=== PATIENT | female | born 1980 | race Caucasian/White ===

== ENCOUNTER 2019-04-26 08:50 | Inpatient (IN) | payer SELFPAY ==
--- NOTE | 2019-04-26 09:32 | ER Document Report ---
ED General - General Stated Complaint: COUGH/CONGESTION/DIZZYNESS Time Seen by Provider: 04/26/19 09:14 Primary Care Provider: SLICK DE LA CRUZ [NO LOCAL MD] - Follow up as needed - HPI Notes: Patient is a 39-year-old female who presents to the emergency department for evaluation of cough and shortness of breath. She states she started last week with sinus symptoms. She believed it was a possible sinus infection. She states she progressed to having fevers starting on Thursday, as high as 101. She then progressed to a cough. She has had a cough intermittently productive of white and green sputum. She denies any hemoptysis. She has had some nausea but no emesis. Normal bowel movements. Normal urination. She describes some pain in her chest and her "lungs" from deep breathing and coughing. It is bilateral. She really cannot describe it. - Related Data Allergies/Adverse Reactions: No Known Allergies Allergy (Unverified 03/30/11 09:25) Home Medications: [id number] cold medications as needed Past Medical History - General Information source: Patient - Social History Smoking Status: Current Every Day Smoker Family History: Reviewed & Not Pertinent Pulmonary Medical History: Reports: Hx Bronchitis, Hx Pneumonia Past Surgical History: Reports: Hx Orthopedic Surgery - left arm cyst - Immunizations Hx Diphtheria, Pertussis, Tetanus Vaccination: Yes Review of Systems - Review of Systems Constitutional: See HPI EENT: See HPI Respiratory: See HPI Gastrointestinal: See HPI Musculoskeletal: See HPI -: Yes All other systems reviewed and negative Physical Exam - Vital signs Vitals: Temp Pulse Resp BP Pulse Ox 97.8 F 121 H 20 173/91 H 62 L 04/26/19 08:57 04/26/19 08:57 04/26/19 08:57 04/26/19 08:57 04/26/19 08:57 - Notes Notes: Is a 39-year-old female who appears her stated age in amount of moderate distress. She has a nonrebreather on and is breathing approximately 24-28 times a minute. Head is normocephalic and atraumatic, pupils are equal round, reactive to light. Mucosa is moist. Heart is tachycardic with normal S1-S2. Lungs show rales bilaterally. Abdomen is soft, nontender, normoactive bowel sounds. Extremities without cyanosis or clubbing. She does have trace pretibial edema. Posterior calves are nontender. Skin is warm and dry. She does have some eczematous appearing lesions on her anterior lower legs. Patient is awake and alert, cooperative examiner. No gross facial asymmetry, moves all 4 extremities spontaneously. Course - Re-evaluation Re-evalutation: 04/26/19 09:39 Patient presents to the emergency department for evaluation. This is a previously healthy but heavy smoker 39-year-old female. She comes in markedly hypoxic, with a room air oxygen saturation of 62%. She has been febrile as of late. Septic work-up was ordered. On physical exam, however, she does seem to have some rales. proBNP and troponin were added. Her EKG does not show any signs of significant ischemic changes, but she does have right axis deviation. This is likely secondary to undiagnosed COPD, but I do not have any old EKGs for comparison. At this time certainly sepsis is in the differential, but I am concerned about the possibility of heart failure as well. BiPAP ordered, we will continue to monitor. 04/26/19 11:14 We continue to monitor patient. She remained tachycardic. Her chest x-ray was nonconclusive, could be pneumonia versus inflammatory versus edema. Her white count is markedly elevated. She does have a bandemia. She is given a 3 L bolus, consistent with sepsis criteria treatment. Her initial lactic acid was normal. I ordered cefepime did however for her apparent pneumonia. Despite her not having any direct risk factors, I do have concern that this could in fact be COVID. This patient is a 39-year-old female with no other known medical history who has significant respiratory failure at this point. I have requested that COVID testing be performed. Her potassium is ordered to be replaced IV. BiPAP is in place and has helped her respiratory status. She is currently normotensive with a respiratory rate of 20. I have contacted medicine for admission. 04/26/19 11:30 Onur testing will intact be performed and is ordered. I spoke with Dr. Westfall and the patient will be admitted for further care. - Vital Signs Vital signs: Temp Pulse Resp BP Pulse Ox 97.9 F 121 H 27 H 134/93 H 95 04/26/19 09:10 04/26/19 08:57 04/26/19 10:31 04/26/19 10:31 04/26/19 10:31 - Laboratory Result Diagrams: 04/26/19 09:20 04/26/19 09:20 Laboratory results interpreted by me: 04/26/19 04/26/19 04/26/19 09:20 09:20 09:20 WBC 26.6 H MCV 102 H MCH 35.6 H Seg Neuts % (Manual) 82 H Band Neutrophils % 6 H Lymphocytes % (Manual) 2 L Abs Neuts (Manual) 23.4 H Abs Monocytes (Manual) 2.7 H VBG pH 7.29 L VBG pCO2 69.6 H* VBG HCO3 32.9 H Sodium 134.7 L Potassium 2.9 L* Chloride 92 L Carbon Dioxide 31 H Glucose 137 H NT-Pro-B Natriuret Pep Albumin 3.3 L 04/26/19 09:20 WBC MCV MCH Seg Neuts % (Manual) Band Neutrophils % Lymphocytes % (Manual) Abs Neuts (Manual) Abs Monocytes (Manual) VBG pH VBG pCO2 VBG HCO3 Sodium Potassium Chloride Carbon Dioxide Glucose NT-Pro-B Natriuret Pep 611 H Albumin - Diagnostic Test Radiology reviewed: Image reviewed, Reports reviewed Radiology results interpreted by me: 04/26/19 11:18 Chest X-Ray 04/26/19 09:10 IMPRESSION: Patchy bibasilar and perihilar opacities may represent mild pulmonary edema, infectious or inflammatory process. - EKG Interpretation by Me Additional EKG results interpreted by me: 04/26/19 09:49 Sinus tachycardia with a rate of 125 bpm. Right axis deviation. Incomplete right bundle branch block. Nonspecific ST changes, but no acute changes concerning for ischemia or infarction. No studies available for comparison. Critical Care Note - Critical Care Note Total time excluding time spent on procedures (mins): 30 Discharge - Discharge Clinical Impression: Acute respiratory failure with hypoxia and hypercapnia, Hypokalemia Sepsis Qualifiers: Sepsis acute organ dysfunction status: unspecified Bilateral pneumonia Qualifiers: Aspiration pneumonia type: unspecified Lung location: lower lobe of lung Condition: Stable Disposition: ADMITTED INPATIENT Admitting Provider: Malou (Hospitalist) Unit Admitted: Telemetry Referrals: LOCALMD,NO [NO LOCAL MD] - Follow up as needed
[2019-04-26 09:37] LABS: VENOUS BLOOD BASE EXCESS 3.8 mmol/L; VENOUS BLOOD HCO3 32.9 mmol/L (20-32); VENOUS BLOOD PH 7.29 (7.30-7.42)
[2019-04-26 09:38] LABS: VENOUS BLOOD PCO2 69.6 mmHg (35-63)
[2019-04-26 09:49] LABS: HEMATOCRIT 41.8 % (36.0-47.0); HEMOGLOBIN 14.5 g/dL (12.0-15.5); MEAN CORPUSCULAR HEMOGLOBIN 35.6 pg (27.0-33.4); MEAN CORPUSCULAR HGB CONC 34.8 g/dL (32.0-36.0); MEAN CORPUSCULAR VOLUME 102 fl (80-97); PLATELET COUNT 341 10^3/uL (150-450); RED BLOOD COUNT 4.08 10^6/uL (3.72-5.28); RED CELL DISTRIBUTION WIDTH 12.5 % (11.5-14.0); WHITE BLOOD COUNT 26.6 10^3/uL (4.0-10.5)
[2019-04-26 09:53] LABS: INTERNATIONAL RATION (INR) 1.17
--- NOTE | 2019-04-26 09:53 | RADIOLOGY REPORT (SQ) ---
EXAM DESCRIPTION: CHEST SINGLE VIEW COMPLETED DATE/TIME: 04/26/2019 8:29 am REASON FOR STUDY: SOB COMPARISON: 03/30/2011 EXAM PARAMETERS: NUMBER OF VIEWS: One view. TECHNIQUE: Single frontal radiographic view of the chest acquired. RADIATION DOSE: NA LIMITATIONS: None. FINDINGS: LUNGS AND PLEURA: Diffuse patchy alveolar and perihilar opacities. Probable small bilater al pleural effusions. MEDIASTINUM AND HILAR STRUCTURES: No masses. Contour normal. HEART AND VASCULAR STRUCTURES: Heart normal in size. Normal vasculature. BONES: No acute findings. HARDWARE: None in the chest. OTHER: No other significant finding. IMPRESSION: Patchy bibasilar and perihilar opacities may represent mild pulmonary edema, infectious or inflammatory process. TECHNICAL DOCUMENTATION: JOB ID: [id number] [employer]- All Rights Reserved Reading location - IP/workstation name: [email or web address]
[2019-04-26 10:09] LABS: A TYPE INFLUENZA AG NEGATIVE (NEGATIVE); ALBUMIN 3.3 g/dL (3.5-5.0); ALKALINE PHOSPHATASE 124 U/L (38-126); ANION GAP 12 (5-19); ASPARTATE AMINO TRANSFERASE 24 U/L (14-36); B INFLUENZA AG NEGATIVE (NEGATIVE); BILIRUBIN,DIRECT 0.2 mg/dL (0.0-0.4); BILIRUBIN,TOTAL 0.5 mg/dL (0.2-1.3); BLOOD UREA NITROGEN 8 mg/dL (7-20); CALCIUM 8.9 mg/dL (8.4-10.2); CARBON DIOXIDE 31 mmol/L (22-30); CHLORIDE 92 mmol/L (98-107); GLUCOSE 137 mg/dL (75-110); TOTAL PROTEIN 6.5 g/dL (6.3-8.2)
[2019-04-26 10:12] LABS: POTASSIUM 2.9 mmol/L (3.6-5.0)
[2019-04-26 10:21] LABS: TROPONIN I 0.033 ng/mL
[2019-04-26 10:22] LABS: ABSOLUTE LYMPHOCYTES# (MANUAL) 0.5 10^3/uL (0.5-4.7); ABSOLUTE MONOCYTES # (MANUAL) 2.7 10^3/uL (0.1-1.4); BAND NEUTROPHILS % (MANUAL) 6 % (3-5); BASOPHILS % (MANUAL) 0 % (0-2); EOSINOPHILS % (MANUAL) 0 % (0-6); LYMPHOCYTES % (MANUAL) 2 % (13-45); MONOCYTES % (MANUAL) 10 % (3-13); SEGMENTED NEUTROPHILS % (MAN) 82 % (42-78); TOTAL CELLS COUNTED 100
[2019-04-26 10:23] LABS: PLATELET COMMENT ADEQUATE; POLYCHROMASIA SLIGHT; TEAR DROP CELLS SLIGHT; TOXIC GRANULATION 1+; TOXIC VACUOLATION PRESENT
[2019-04-26] MEDS ORDERED: CEFEPIME 2 GM/D5W RTU 2 GM/50 ML RTUPB IV ONE (10:48)
[2019-04-26] MEDS ORDERED: NORMAL SALINE 1000 ML 1,000 ML IV SCH (11:00)
[2019-04-26] MEDS: NORMAL SALINE 1000 ML 1,000 ML IV PRN ×2 (11:50→12:08)
[2019-04-26] MEDS: POTASSI CL 20 MEQ/50 ML RIDER 20 MEQ/50 ML RTUPB IV SCH ×2 (11:54→14:39)
[2019-04-26] MEDS ORDERED: NORMAL SALINE 1000 ML 250 ML IV ONE (12:04)
[2019-04-26] MEDS ORDERED: MAGNESIUM HYDROXIDE SUSP 30 ML UDCUP PO PRN (12:51)
[2019-04-26] MEDS ORDERED: IPRATROPIUM/ALBUTEROL 0.5-2.5 MG/3 ML AMPUL NEB PRN (12:51)
[2019-04-26] MEDS ORDERED: ONDANSETRON HCL INJ/PF 4 MG/2 ML SDV IV PRN (12:51)
[2019-04-26] MEDS ORDERED: TEMAZEPAM 7.5 MG CAPSULE PO PRN (12:51)
[2019-04-26] MEDS ORDERED: PROMETHAZINE HCL INJ 25 MG/1 ML VIAL IV PRN (12:51)
[2019-04-26] MEDS ORDERED: BENZOCAINE/MENTHOL SORE THROAT LOZENGE BUCCAL PRN (13:00)
--- NOTE | 2019-04-26 13:27 | PDOC H&P ---
History of Present Illness Admission Date/PCP: 04/26/19 11:48 History of Present Illness: ELLY ELLIS is a 39 year old female past medical untreated psoriasis and tobacco abuse presenting to ED complaining of subjective fever, chills, cough, sore throat, generalized fatigue and muscle ache. Patient is stating that about a week ago she she was having headache and rhinorrhea and thought she was having sinus infection, headache and rhinorrhea resolved but patient started having intermittent productive cough and shortness of breath since Thursday associated with subjective fever, chills, sore throat, generalized fatigue and muscle ache. Denies any chest pain, nausea, vomiting, abdominal pain, diarrhea, constipation or any urinary symptoms. Denies any recent travel or exposure to anybody with similar symptoms. 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 In ED was noted to be hypoxic on room air, with chest x-ray positive for patchy bibasilar and perihilar opacities CBC with neutrophilic leukocytosis and bandemia, and mildly elevated troponins. Influenza type A/B- COVID-19 screening by ER physician was negative however given presentation patient was still considered a possible suspect for COVID-19. Past Medical History Pulmonary Medical History: Reports: Bronchitis, Pneumonia Past Surgical History Past Surgical History: Reports: Orthopedic Surgery - left arm cyst Social History Smoking Status: Current Every Day Smoker Family History Family History: Reviewed & Not Pertinent Parental Family History Reviewed: Yes Children Family History Reviewed: Yes Sibling(s) Family History Reviewed.: Yes Medication/Allergy Home Medications: No Home Medications 03/30/11 Allergies/Adverse Reactions: No Known Allergies Allergy (Unverified 03/30/11 09:25) Physical Exam Vital Signs: Temp Pulse Resp BP Pulse Ox 97.9 F 121 H 23 H 147/94 H 97 04/26/19 09:10 04/26/19 08:57 04/26/19 12:45 04/26/19 11:00 04/26/19 12:45 Intake & Output 04/25/19 04/26/19 04/27/19 06:59 06:59 06:59 Intake Total 1050 Balance 1050 Weight 94.3 kg Results Laboratory Results: 04/26/19 09:20 04/26/19 09:20 03/04/26/19 04/26/19 09:20 09:20 09:20 WBC 26.6 H RBC 4.08 Hgb 14.5 Hct 41.8 MCV 102 H MCH 35.6 H MCHC 34.8 RDW 12.5 Plt Count 341 Seg Neutrophils % Not Reportable VBG pH 7.29 L VBG pCO2 69.6 H* VBG HCO3 32.9 H VBG Base Excess 3.8 Sodium 134.7 L Potassium 2.9 L* Chloride 92 L Carbon Dioxide 31 H Anion Gap 12 BUN 8 Creatinine 0.73 Est GFR ( Amer) > 60 Glucose 137 H Lactic Acid Calcium 8.9 Magnesium Total Bilirubin 0.5 AST 24 Alkaline Phosphatase 124 Total Protein 6.5 Albumin 3.3 L 04/26/19 04/26/19 09:20 09:20 WBC RBC Hgb Hct MCV MCH MCHC RDW Plt Count Seg Neutrophils % VBG pH VBG pCO2 VBG HCO3 VBG Base Excess Sodium Potassium Chloride Carbon Dioxide Anion Gap BUN Creatinine Est GFR ( Amer) Glucose Lactic Acid 1.8 Calcium Magnesium 1.8 Total Bilirubin AST Alkaline Phosphatase Total Protein Albumin 04/26/19 09:20 Troponin I 0.033 NT-Pro-B Natriuret Pep 611 H Impressions: Chest X-Ray 04/26/19 09:10 IMPRESSION: Patchy bibasilar and perihilar opacities may represent mild pulmonary edema, infectious or inflammatory process. Assessment and Plan - Diagnosis (1) Acute respiratory failure with hypoxia Is this a current diagnosis for this admission?: Yes Plan: Likely due to underlying pneumonia and upper respiratory infection. Empiric IV antibiotics, sputum culture, blood culture, incentive spirometry, flutter valve, duo nebs, BiPAP. (2) Pneumonia Is this a current diagnosis for this admission?: Yes Plan: Most likely community-acquired, caused by gram-positive cocci/rods including Streptococcus pneumonia. Plan as per #1. (3) Obesity (BMI 30-39.9) Is this a current diagnosis for this admission?: Yes Plan: BMI 38.0. Diet and lifestyle modification recommended. We will obtain TSH, lipid panel and hemoglobin A1c. (4) Tobacco abuse Is this a current diagnosis for this admission?: Yes Plan: Counseled on quitting. Will provide NicoDerm patch. (5) Psoriasis Is this a current diagnosis for this admission?: Yes Plan: Currently not a flare. Patient has not seek any treatment for her psoriasis. Outpatient follow-up with rheumatology and PCP recommended. (6) Hypokalemia Is this a current diagnosis for this admission?: Yes Plan: No acute EKG changes. Replace as needed. BMP tomorrow. (7) Sepsis Qualifiers: Sepsis acute organ dysfunction status: unspecified Is this a current diagnosis for this admission?: Yes Plan: Ruled out. Presentation can be explained by underlying pneumonia. Presented with hypoxia, tachypnea, neutrophilic leukocytosis and reporting subjective fever. Lactic acid WNL. SBP WNL. (8) Upper respiratory infection, viral Is this a current diagnosis for this admission?: Yes Plan: Upper respiratory viral infection, COVID-19 expected. Pending COVID-19 source and COVID-19 (WILBERT) Supportive measures with isolation as per hospital protocol.
[2019-04-26] MEDS: IPRATROPIUM/ALBUTEROL 0.5-2.5 MG/3 ML AMPUL NEB SCH ×2 (14:02→19:48)
--- NOTE | 2019-04-26 14:36 | EKG REPORT ---
SEVERITY:- ABNORMAL ECG - SINUS TACHYCARDIA SHELLY, CONSIDER BIATRIAL ABNORMALITIES RIGHT AXIS DEVIATION NONSPECIFIC T ABNORMALITIES, INFERIOR LEADS : Confirmed by: Misty Cooper MD 26-Apr-2019 14:34:07
[2019-04-26] MEDS: DOCUSATE SODIUM 100 MG CAPSULE PO SCH (17:23)
[2019-04-26] MEDS ORDERED: RINGERS SOLUTION,LACTATED 1,000 ML IV ONE (20:15)
[2019-04-26] MEDS: FAMOTIDINE 20 MG TABLET PO SCH (21:28)
[2019-04-26] MEDS ORDERED: LORAZEPAM INJ 2 MG/1 ML VIAL ONE (21:51)
[2019-04-26] MEDS ORDERED: CEFTRIAXONE 1 GM/D5W RTU 1 GM/50 ML RTUPB IV SCH (22:00)
[2019-04-26] MEDS ORDERED: LORAZEPAM INJ 2 MG/1 ML VIAL IV ONE (22:15)
[2019-04-26] MEDS ORDERED: METOPROLOL TARTRATE PF/INJ 5 MG/5 ML SDV IV ONE (23:57)
--- NOTE | 2019-04-27 03:16 | Progress Note ---
Provider Note Provider Note: Critical care note: for 04/26/2019 Critical care start time: 19:56 Critical care issue: Tachycardia I was contacted by the patient's nurse due to her persistent sinus tachycardia in the 130s to 140s. Patient was not experiencing any discomfort due to her tachycardia and did not notice palpitations. Patient's other vital signs were stable and she was noted to be of calm demeanor. Chest revealed unlabored breathing with mild wheezes throughout all otero and a minimally prolonged expiratory phase. Heart showed a regular tachycardia without murmurs clicks gallops or rubs. Patient was initially treated with IV fluids utilizing lactated Ringer's. Despite receiving fluids she continued to be tachycardic and was given a dose of Ativan intravenously without significant improvement. She was subsequently given metoprolol tartrate 5 mg IV every 4 hours as needed for tachycardia greater than 110 and this had an excellent effect resulting in a heart rate in the 90s over the remainder of my shift. Patient was checked on numerous occasions. Critical care end time: 03:14 Total critical care time: 17 minutes
[2019-04-27] MEDS: RINGERS SOLUTION,LACTATED 1,000 ML IV PRN ×3 (06:21→16:12)
[2019-04-27 06:32] LABS: HEMATOCRIT 39.3 % (36.0-47.0); MEAN CORPUSCULAR HEMOGLOBIN 34.8 pg (27.0-33.4); MEAN CORPUSCULAR HGB CONC 33.1 g/dL (32.0-36.0); MEAN CORPUSCULAR VOLUME 105 fl (80-97); PLATELET COUNT 327 10^3/uL (150-450); RED BLOOD COUNT 3.75 10^6/uL (3.72-5.28); RED CELL DISTRIBUTION WIDTH 13.2 % (11.5-14.0); WHITE BLOOD COUNT 24.6 10^3/uL (4.0-10.5)
[2019-04-27 06:55] LABS: ALBUMIN 2.8 g/dL (3.5-5.0); ALKALINE PHOSPHATASE 103 U/L (38-126); ANION GAP 8 (5-19); ASPARTATE AMINO TRANSFERASE 21 U/L (14-36); BILIRUBIN,DIRECT 0.2 mg/dL (0.0-0.4); BILIRUBIN,TOTAL 0.4 mg/dL (0.2-1.3); BLOOD UREA NITROGEN 9 mg/dL (7-20); CALCIUM 8.2 mg/dL (8.4-10.2); CARBON DIOXIDE 32 mmol/L (22-30); CHLORIDE 98 mmol/L (98-107); CHOLESTEROL 85.05 mg/dL (0-200); GLUCOSE 103 mg/dL (75-110); TOTAL PROTEIN 5.5 g/dL (6.3-8.2); TRIGLYCERIDES 121 mg/dL (<150)
[2019-04-27 07:05] LABS: ABSOLUTE LYMPHOCYTES# (MANUAL) 1.7 10^3/uL (0.5-4.7); ABSOLUTE MONOCYTES # (MANUAL) 0.7 10^3/uL (0.1-1.4); BAND NEUTROPHILS % (MANUAL) 1 % (3-5); BASOPHILS % (MANUAL) 0 % (0-2); EOSINOPHILS % (MANUAL) 0 % (0-6); LYMPHOCYTES % (MANUAL) 7 % (13-45); MONOCYTES % (MANUAL) 3 % (3-13); SEGMENTED NEUTROPHILS % (MAN) 89 % (42-78); TOTAL CELLS COUNTED 100
[2019-04-27 07:06] LABS: DIRECT LDL 44 mg/dL (<100)
[2019-04-27 07:07] LABS: PLATELET COMMENT ADEQUATE; TOXIC GRANULATION SLIGHT
[2019-04-27 07:08] LABS: POTASSIUM 4.2 mmol/L (3.6-5.0)
[2019-04-27 07:09] LABS: FREE T3 3.07 pg/mL (2.77-5.27); FREE T4 (FREE THYROXINE) 1.2 ng/dL (0.78-2.19)
[2019-04-27 07:23] LABS: THYROID STIMULATING HORMONE 0.83 uIU/mL (0.47-4.68)
[2019-04-27] MEDS: IPRATROPIUM/ALBUTEROL 0.5-2.5 MG/3 ML AMPUL NEB SCH ×3 (08:11→20:15)
[2019-04-27] MEDS: METOPROLOL TARTRATE PF/INJ 5 MG/5 ML SDV IV PRN (08:25)
[2019-04-27] MEDS: OXYCODONE-ACETAMINOPHEN 5-325 MG TABLET PO PRN (08:26)
[2019-04-27] MEDS: ENOXAPARIN SODIUM INJ 40 MG/0.4 ML DISP.SYRIN SUBCUT SCH (09:23)
[2019-04-27] MEDS: DOCUSATE SODIUM 100 MG CAPSULE PO SCH ×2 (09:23→18:17)
[2019-04-27] MEDS: FAMOTIDINE 20 MG TABLET PO SCH ×2 (09:23→21:36)
--- NOTE | 2019-04-27 12:08 | PDOC PROGRESS REPORT ---
Subjective Progress Note for:: 04/27/19 Subjective:: ELLY ELLIS is a 39 year old female past medical untreated psoriasis and tobacco abuse presenting to ED complaining of subjective fever, chills, cough, sore throat, generalized fatigue and muscle ache. Patient is stating that about a week ago she she was having headache and rhinorrhea and thought she was having sinus infection, headache and rhinorrhea resolved but patient started having intermittent productive cough and shortness of breath since Thursday associated with subjective fever, chills, sore throat, generalized fatigue and muscle ache. Denies any chest pain, nausea, vomiting, abdominal pain, diarrhea, constipation or any urinary symptoms. Denies any recent travel or exposure to anybody with similar symptoms. 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 In ED was noted to be hypoxic on room air, with chest x-ray positive for patchy bibasilar and perihilar opacities CBC with neutrophilic leukocytosis and bandemia, and mildly elevated troponins. Influenza type A/B- COVID-19 screening by ER physician was negative however given presentation patient was still considered a possible suspect for COVID-19. 04/27/2019. No acute events overnight. Patient still complaining of generalized fatigue, sore throat, cough, and he still dependent on BiPAP. Denies any chest pain, nausea, vomiting, diarrhea, constipation or any urinary symptoms. Reason For Visit: ACUTE RESPIRATORY FAILURE WITH HYPOXIA,PNEUMONIA Physical Exam Vital Signs: Temp Pulse Resp BP Pulse Ox 98.5 F 99 24 H 106/57 L 94 04/27/19 11:21 04/27/19 11:21 04/27/19 11:21 04/27/19 11:21 04/27/19 11:21 Intake & Output 04/26/19 04/27/19 04/28/19 06:59 06:59 06:59 Intake Total 3850 667 Output Total 200 300 Balance 3650 367 Weight 94.1 kg General appearance: PRESENT: mild distress, obese Head exam: PRESENT: atraumatic, normocephalic Respiratory exam: PRESENT: accessory muscle use, clear to auscultation matt, tachypnea. ABSENT: rales, rhonchi, wheezes Cardiovascular exam: PRESENT: RRR. ABSENT: diastolic murmur, rubs, systolic murmur GI/Abdominal exam: PRESENT: normal bowel sounds, soft. ABSENT: distended, gu arding, mass, organolmegaly, rebound, tenderness Neurological exam: PRESENT: alert, awake, oriented to person, oriented to place, oriented to time, oriented to situation, CN II-XII grossly intact. ABSENT: motor sensory deficit Results Laboratory Results: 04/27/19 06:02 04/27/19 06:02 04/26/19 04/26/19 04/27/19 12:46 15:45 06:02 WBC 24.6 H RBC 3.75 Hgb 13.0 Hct 39.3 MCV 105 H MCH 34.8 H MCHC 33.1 RDW 13.2 Plt Count 327 Seg Neutrophils % Not Reportable Sodium Potassium Chloride Carbon Dioxide Anion Gap BUN Creatinine Est GFR ( Amer) Glucose Lactic Acid 0.7 1.4 Calcium Magnesium Total Bilirubin AST Alkaline Phosphatase Total Protein Albumin Triglycerides Cholesterol LDL Cholesterol Direct VLDL Cholesterol HDL Cholesterol TSH Free T4 Free T3 pg/mL 04/27/19 04/27/19 06:02 06:02 WBC RBC Hgb Hct MCV MCH MCHC RDW Plt Count Seg Neutrophils % Sodium 137.7 Potassium 4.2 D Chloride 98 Carbon Dioxide 32 H Anion Gap 8 BUN 9 Creatinine 0.71 Est GFR ( Amer) > 60 Glucose 103 Lactic Acid Calcium 8.2 L Magnesium 2.1 Total Bilirubin 0.4 AST 21 Alkaline Phosphatase 103 Total Protein 5.5 L Albumin 2.8 L Triglycerides 121 Cholesterol 85.05 LDL Cholesterol Direct 44 VLDL Cholesterol 24.0 HDL Cholesterol 18 L TSH 0.83 Free T4 1.20 Free T3 pg/mL 3.07 04/26/19 09:20 Troponin I 0.033 NT-Pro-B Natriuret Pep 611 H Impressions: Chest X-Ray 04/26/19 09:10 IMPRESSION: Patchy bibasilar and perihilar opacities may represent mild pulmonary edema, infectious or inflammatory process. Assessment and Plan - Diagnosis (1) Acute respiratory failure with hypoxia Is this a current diagnosis for this admission?: Yes Plan: No significant changes. BiPAP dependent. Likely due to underlying pneumonia and upper respiratory infection. Empiric IV antibiotics, sputum culture, blood culture, incentive spirometry, flutter valve, duo nebs, BiPAP. (2) Pneumonia Is this a current diagnosis for this admission?: Yes Plan: Most likely community-acquired, caused by gram-positive cocci/rods including Streptococcus pneumonia. Plan as per #1. (3) Obesity (BMI 30-39.9) Is this a current diagnosis for this admission?: Yes Plan: BMI 38.0. Diet and lifestyle modification recommended. We will obtain TSH, lipid panel and hemoglobin A1c. (4) Tobacco abuse Is this a current diagnosis for this admission?: Yes Plan: Counseled on quitting. Will provide NicoDerm patch. (5) Psoriasis Is this a current diagnosis for this admission?: Yes Plan: Currently not a flare. Patient has not seek any treatment for her psoriasis. Outpatient follow-up with rheumatology and PCP recommended. (6) Hypokalemia Is this a current diagnosis for this admission?: Yes Plan: No acute EKG changes. Replace as needed. BMP tomorrow. (7) Sepsis Qualifiers: Sepsis acute organ dysfunction status: unspecified Is this a current diagnosis for this admission?: Yes Plan: Ruled out. Presentation can be explained by underlying pneumonia. Presented with hypoxia, tachypnea, neutrophilic leukocytosis and reporting ayala bjective fever. Lactic acid WNL. SBP WNL. (8) Upper respiratory infection, viral Is this a current diagnosis for this admission?: Yes Plan: Upper respiratory viral infection, COVID-19 expected. Pending COVID-19 source and COVID-19 ([facility]ILBERT) Supportive measures with isolation as per hospital protocol.
[2019-04-27] MEDS: CEFEPIME 1 GM/D5W RTU 1 GM/50 ML RTUPB IV SCH (21:37)
[2019-04-28] MEDS: RINGERS SOLUTION,LACTATED 1,000 ML IV PRN ×2 (00:07→07:44)
[2019-04-28] MEDS: OXYCODONE-ACETAMINOPHEN 5-325 MG TABLET PO PRN (01:24)
[2019-04-28] MEDS: IPRATROPIUM/ALBUTEROL 0.5-2.5 MG/3 ML AMPUL NEB SCH ×3 (08:52→20:21)
[2019-04-28] MEDS: FAMOTIDINE 20 MG TABLET PO SCH ×2 (09:04→21:14)
[2019-04-28] MEDS: ENOXAPARIN SODIUM INJ 40 MG/0.4 ML DISP.SYRIN SUBCUT SCH (09:04)
[2019-04-28] MEDS: DOCUSATE SODIUM 100 MG CAPSULE PO SCH ×2 (09:04→17:18)
[2019-04-28] MEDS: CEFEPIME 1 GM/D5W RTU 1 GM/50 ML RTUPB IV SCH ×2 (09:05→21:14)
[2019-04-28] MEDS ORDERED: ONDANSETRON HCL INJ/PF 4 MG/2 ML SDV IV PRN (11:00)
[2019-04-28] MEDS ORDERED: PROMETHAZINE HCL INJ 25 MG/1 ML VIAL IV PRN (11:00)
[2019-04-28] MEDS ORDERED: IPRATROPIUM/ALBUTEROL 0.5-2.5 MG/3 ML AMPUL NEB PRN (11:26)
--- NOTE | 2019-04-28 11:33 | PDOC PROGRESS REPORT ---
Subjective Progress Note for:: 04/28/19 Subjective:: The patient is still wheezy and she is still on BiPAP this morning. She reports that she is not feeling better. She remains afebrile with intermittent tachycardia. Reason For Visit: ACUTE RESPIRATORY FAILURE WITH HYPOXIA,PNEUMONIA Physical Exam Vital Signs: Temp Pulse Resp BP Pulse Ox 97.7 F 105 H 22 H 142/91 H 93 04/28/19 07:22 04/28/19 08:52 04/28/19 08:52 04/28/19 07:22 04/28/19 08:52 Intake & Output 04/27/19 04/28/19 04/29/19 06:59 06:59 06:59 Intake Total 3850 4317 50 Output Total 200 900 Balance 3650 3417 50 Weight 94.1 kg 84.9 kg General appearance: PRESENT: cooperative, obese, well-developed, other - BiPAP mask in place Head exam: PRESENT: atraumatic, normocephalic Ear exam: PRESENT: normal external ear exam. ABSENT: bleeding, drainage Respiratory exam: PRESENT: symmetrical, unlabored, wheezes - Intermittent expiratory wheezes. ABSENT: accessory muscle use, rales, rhonchi, tachypnea Cardiovascular exam: PRESENT: RRR, +S1, +S2 GI/Abdominal exam: PRESENT: normal bowel sounds, soft, other - Protuberant abdomen. ABSENT: distended, guarding, tenderness Rectal exam: PRESENT: deferred Gentrourinary exam: ABSENT: indwelling catheter Extremities exam: ABSENT: pedal edema Musculoskeletal exam: PRESENT: ambulatory, normal inspection. ABSENT: deformity Neurological exam: PRESENT: alert, awake, oriented to person, oriented to place, oriented to time, oriented to situation, CN II-XII grossly intact Psychiatric exam: PRESENT: flat affect. ABSENT: agitated, anxious Focused psych exam: ABSENT: delusional, restlessness Skin exam: PRESENT: rash - Diffuse psoriatic plaques on legs Results Laboratory Results: 04/27/19 06:02 04/27/19 06:02 04/26/19 09:20 Troponin I 0.033 NT-Pro-B Natriuret Pep 611 H Impressions: Chest X-Ray 04/26/19 09:10 IMPRESSION: Patchy bibasilar and perihilar opacities may represent mild pulmonary edema, infectious or inflammatory process. Assessment and Plan - Diagnosis (1) Acute respiratory failure with hypoxia and hypercapnia Is this a current diagnosis for this admission?: Yes Plan: 04/28/2019 Remains on BiPAP. With FiO2 55%. (2) Pneumonia Qualifiers: Pneumonia type: due to unspecified organism Laterality: bilateral Lung location: lower lobe of lung Qualified Code(s): J18.9 - Pneumonia, unspecified organism Is this a current diagnosis for this admission?: Yes Plan: Most likely community-acquired, caused by gram-positive cocci/rods including Str eptococcus pneumonia. Plan as per #1. 04/28/2019 Continue cefepime. I will add azithromycin for atypical agents. Covid 19 testing is pending. (3) Tobacco abuse Is this a current diagnosis for this admission?: Yes Plan: Counseled on quitting. Will provide NicoDerm patch. 04/28/2019 Continue to encourage tobacco cessation (4) Psoriasis Is this a current diagnosis for this admission?: Yes Plan: Currently not a flare. Patient has not seek any treatment for her psoriasis. Outpatient follow-up with rheumatology and PCP recommended. 04/28/2019 No acute treatment at this time especially since most treatments can be immunosuppressive. (5) Obesity (BMI 30-39.9) Is this a current diagnosis for this admission?: Yes Plan: BMI 38.0. Diet and lifestyle modification recommended. We will obtain TSH, lipid panel and hemoglobin A1c. 04/28/2019 Thyroid studies are normal. Hemoglobin A1c is normal. (6) Hypertension Qualifiers: Hypertension type: essential hypertension Qualified Code(s): I10 - Essential (primary) hypertension Is this a current diagnosis for this admission?: Yes Plan: 04/28/2019 Blood pressures have been consistently elevated. It could be related to the acute illness. We will continue to monitor. If they persist then consider oral antihypertensive agents. (7) Hypokalemia Is this a current diagnosis for this admission?: Yes Plan: No acute EKG changes. Replace as needed. BMP tomorrow. 04/28/2019 Serum potassium is normal today. We will recheck tomorrow and continue to monitor. Will also check magnesium level. No obvious etiology for the low potassium. - Time Time Spent with patient: 15-24 minutes Medications reviewed and adjusted accordingly: Yes Anticipated discharge: Home
[2019-04-28] MEDS: BUDESONIDE NEB 0.5 MG/2 ML AMPUL NEB SCH (20:21)
[2019-04-28] MEDS: AZITHROMYCIN 500 MG in DEXTROSE 5%-WATER 250 ML IV SCH (21:15)
[2019-04-28] MEDS: METOPROLOL TARTRATE PF/INJ 5 MG/5 ML SDV IV PRN (22:18)
[2019-04-29] MEDS: IPRATROPIUM/ALBUTEROL 0.5-2.5 MG/3 ML AMPUL NEB SCH ×4 (02:05→20:19)
[2019-04-29 07:44] LABS: ANION GAP 9 (5-19); BLOOD UREA NITROGEN 9 mg/dL (7-20); CALCIUM 8.4 mg/dL (8.4-10.2); CARBON DIOXIDE 38 mmol/L (22-30); CHLORIDE 91 mmol/L (98-107); GLUCOSE 98 mg/dL (75-110)
[2019-04-29 07:51] LABS: POTASSIUM 2.6 mmol/L (3.6-5.0)
[2019-04-29] MEDS: BUDESONIDE NEB 0.5 MG/2 ML AMPUL NEB SCH ×2 (08:19→20:19)
[2019-04-29] MEDS: POTASSIUM CHLORIDE 20 MEQ/50 ML RTU IV SCH ×2 (08:41→10:56)
[2019-04-29] MEDS: FAMOTIDINE 20 MG TABLET PO SCH ×2 (09:18→21:25)
[2019-04-29] MEDS: DOCUSATE SODIUM 100 MG CAPSULE PO SCH ×2 (09:18→18:16)
[2019-04-29] MEDS: CEFEPIME 1 GM/D5W RTU 1 GM/50 ML RTUPB IV SCH ×2 (09:18→21:25)
[2019-04-29] MEDS: POTASSIUM CHLORIDE 10 MEQ TABLET.ER PO SCH (09:18)
[2019-04-29] MEDS: OXYCODONE-ACETAMINOPHEN 5-325 MG TABLET PO PRN ×2 (09:18→18:16)
[2019-04-29] MEDS: ENOXAPARIN SODIUM INJ 40 MG/0.4 ML DISP.SYRIN SUBCUT SCH (09:18)
--- NOTE | 2019-04-29 15:45 | PDOC PROGRESS REPORT ---
Subjective Progress Note for:: 04/29/19 Subjective:: Patient is sitting on the edge of the bed. She is struggling to put her gown back on. Her oxygen cannula tubing is looped over her ear. She is slow to answer questions. She has a very gravelly voice. Reason For Visit: ACUTE RESPIRATORY FAILURE WITH HYPOXIA,PNEUMONIA Physical Exam Vital Signs: Temp Pulse Resp BP Pulse Ox 98.5 F 106 H 22 H 139/65 H 90 L 04/29/19 11:36 04/29/19 13:54 04/29/19 13:54 04/29/19 11:36 04/29/19 13:54 Intake & Output 04/28/19 04/29/19 04/30/19 06:59 06:59 06:59 Intake Total 4317 1686 410 Output Total 900 300 Balance 3417 1386 410 Weight 84.9 kg 96.7 kg General appearance: PRESENT: obese Exam: Obese 39-year-old patient sitting on the edge of the bed. Somewhat tachypneic and appears slightly confused but she denies this on questioning Head exam: PRESENT: atraumatic, normocephalic Ear exam: PRESENT: normal external ear exam. ABSENT: bleeding, drainage Respiratory exam: PRESENT: rhonchi, symmetrical, tachypnea. ABSENT: clear to auscultation matt, rales Cardiovascular exam: PRESENT: RRR, +S1, +S2 GI/Abdominal exam: PRESENT: normal bowel sounds, soft, other - Protuberant abdomen. ABSENT: tenderness Rectal exam: PRESENT: deferred Gentrourinary exam: ABSENT: indwelling catheter Extremities exam: ABSENT: pedal edema Musculoskeletal exam: PRESENT: normal inspection. ABSENT: deformity Neurological exam: PRESENT: alert, altered - The patient had the day of the week wrong but did have the months and location right. She was very slow to answer questions. I did ask her specifically if she felt confused or foggy but she denied this., awake Psychiatric exam: PRESENT: flat affect. ABSENT: agitated, anxious Skin exam: PRESENT: dry, warm, other - Diffuse psoriatic plaques Results Laboratory Results: 04/27/19 06:02 04/29/19 06:54 04/29/19 06:54 Sodium 138.0 Potassium 2.6 L* Chloride 91 L Carbon Dioxide 38 H Anion Gap 9 BUN 9 Creatinine 0.47 L Est GFR ( Amer) > 60 Glucose 98 Calcium 8.4 Magnesium 2.4 H 04/26/19 09:20 Troponin I 0.033 NT-Pro-B Natriuret Pep 611 H Impressions: Chest X-Ray 04/26/19 09:10 IMPRESSION: Patchy bibasilar and perihilar opacities may represent mild pulmonary edema, infectious or inflammatory process. Assessment and Plan - Diagnosis (1) Acute respiratory failure with hypoxia and hypercapnia Is this a current diagnosis for this admission?: Yes Plan: 04/28/2019 Remains on BiPAP. With FiO2 55%. 04/29/2019 The patient is unable to spend much time off of the BiPAP. When I walked in the room she was sitting up and they were trying nasal cannula however the nasal cannula was resting over her left ear. We will continue the BiPAP and attempt to wean from BiPAP as tolerated. (2) Pneumonia Qualifiers: Pneumonia type: due to unspecified organism Laterality: bilateral Lung location: lower lobe of lung Qualified Code(s): J18.9 - Pneumonia, unspecified organism Is this a current diagnosis for this admission?: Yes Plan: Most likely community-acquired, caused by gram-positive cocci/rods including Streptococcus pneumonia. Plan as per #1. 04/28/2019 Continue cefepime. I will add azithromycin for atypical agents. Covid 19 testing is pending. 04/29/2019 Her white count is only slightly better. She is now on dual antibiotic therapy. Will monitor closely. We will obtain a repeat chest x-ray today. (3) Tobacco abuse Is this a current diagnosis for this admission?: Yes Plan: Counseled on quitting. Will provide NicoDerm patch. 04/28/2019 Continue to encourage tobacco cessation 04/29/2019 The patient smokes 2 packs of cigarettes daily. A nicotine patch will be available daily if needed. (4) Psoriasis Is this a current diagnosis for this admission?: Yes Plan: Currently not a flare. Patient has not seek any treatment for her psoriasis. Outpatient follow-up with rheumatology and PCP recommended. 04/28/2019 No acute treatment at this time especially since most treatments can be immunosuppressive. 04/29/2019 As above. The patient does deny any history of treatment with immunosuppressant therapy. (5) Obesity (BMI 30-39.9) Is this a current diagnosis for this admission?: Yes Plan: BMI 38.0. Diet and lifestyle modification recommended. We will obtain TSH, lipid panel and hemoglobin A1c. 04/28/2019 Thyroid studies are normal. Hemoglobin A1c is normal. 04/29/2019 The patient's slow recovery could certainly be partly related to her obesity. She may have obesity hypoventilation syndrome. After this illness the patient might consider discontinuing smoking, increasing exercise and an aggressive weight loss diet. (6) Hypertension Qualifiers: Hypertension type: essential hypertension Qualified Code(s): I10 - Essential (primary) hypertension Is this a current diagnosis for this admission?: Yes Plan: 04/28/2019 Blood pressures have been consistently elevated. It could be related to the acute illness. We will continue to monitor. If they persist then consider oral antihypertensive agents. 04/29/2019 Blood pressures are elevated but not significantly so. We will continue to monitor. Antihypertensive medication if indicated. (7) Hypokalemia Is this a current diagnosis for this admission?: Yes Plan: No acute EKG changes. Replace as needed. BMP tomorrow. 04/28/2019 Serum potassium is normal today. We will recheck tomorrow and continue to monitor. Will also check magnesium level. No obvious etiology for the low potassium. 04/29/2019 Am not sure why the potassium level has dropped to the extreme. We will initiate aggressive potassium supplementation and continue to monitor - Time Time Spent with patient: 15-24 minutes Medications reviewed and adjusted accordingly: Yes
--- NOTE | 2019-04-29 18:52 | RADIOLOGY REPORT (SQ) ---
EXAM DESCRIPTION: CHEST SINGLE VIEW COMPLETED DATE/TIME: 04/29/2019 5:16 pm REASON FOR STUDY: Difficulty breathing COMPARISON: Chest radiograph, 04/26/2019. EXAM PARAMETERS: NUMBER OF VIEWS: One view. TECHNIQUE: Single frontal radiographic view of the chest acquired. RADIATION DOSE: NA LIMITATIONS: None. FINDINGS: LUNGS AND PLEURA: There are persistent patchy perihilar and basilar predominant opacities in both lungs. Small bilateral pleural effusions. Findings have slightly worsened since previous ex amination. No pneumothorax. MEDIASTINUM AND HILAR STRUCTURES: No masses. Contour normal. HEART AND VASCULAR STRUCTURES: Heart normal in size. Normal vasculature. BONES: No acute findings. HARDWARE: None in the chest. OTHER: No other significant finding. IMPRESSION: Patchy perihilar and basilar predominant opacities with small pleural effusions have sli ghtly worsened since previous examination. Findings may represent mild pulmonary edema, infectious o r inflammatory process. Differential includes pneumonia, influenza, or other viral etiologies. TECHNICAL DOCUMENTATION: JOB ID: [id number] 2010 [employer]- All Rights Reserved Reading location - IP/workstation name: [email or web address]
[2019-04-29 19:04] LABS: BLOOD UREA NITROGEN 10 mg/dL (7-20); CALCIUM 8.5 mg/dL (8.4-10.2); CHLORIDE 92 mmol/L (98-107); GLUCOSE 112 mg/dL (75-110)
[2019-04-29 19:10] LABS: ANION GAP 8 (5-19); CARBON DIOXIDE 38 mmol/L (22-30)
[2019-04-29 19:18] LABS: POTASSIUM 2.8 mmol/L (3.6-5.0)
[2019-04-29] MEDS ORDERED: POTASSIUM CHLORIDE 10 MEQ TABLET.ER PO ONE (20:00)
[2019-04-29] MEDS ORDERED: POTASSI CL 20 MEQ/50 ML RIDER 20 MEQ/50 ML RTUPB IV SCH (20:30)
[2019-04-29] MEDS: AZITHROMYCIN 500 MG in DEXTROSE 5%-WATER 250 ML IV SCH (21:26)
[2019-04-29] MEDS: POTASSI CL 20 MEQ/50 ML RIDER 20 MEQ/50 ML RTUPB IV SCH (23:46)
[2019-04-30] MEDS: IPRATROPIUM/ALBUTEROL 0.5-2.5 MG/3 ML AMPUL NEB SCH ×4 (02:24→20:31)
[2019-04-30] MEDS: POTASSI CL 20 MEQ/50 ML RIDER 20 MEQ/50 ML RTUPB IV SCH (03:39)
[2019-04-30 06:15] LABS: HEMATOCRIT 35.5 % (36.0-47.0); MEAN CORPUSCULAR HEMOGLOBIN 34.8 pg (27.0-33.4); MEAN CORPUSCULAR HGB CONC 33.8 g/dL (32.0-36.0); MEAN CORPUSCULAR VOLUME 103 fl (80-97); PLATELET COUNT 341 10^3/uL (150-450); RED BLOOD COUNT 3.44 10^6/uL (3.72-5.28); RED CELL DISTRIBUTION WIDTH 12.7 % (11.5-14.0); WHITE BLOOD COUNT 17.2 10^3/uL (4.0-10.5)
[2019-04-30 06:43] LABS: ABSOLUTE MONOCYTES # (MANUAL) 0.5 10^3/uL (0.1-1.4); BAND NEUTROPHILS % (MANUAL) 1 % (3-5); BASOPHILS % (MANUAL) 0 % (0-2); EOSINOPHILS % (MANUAL) 0 % (0-6); LYMPHOCYTES % (MANUAL) 6 % (13-45); MONOCYTES % (MANUAL) 3 % (3-13); PLATELET COMMENT ADEQUATE; SEGMENTED NEUTROPHILS % (MAN) 90 % (42-78); TOTAL CELLS COUNTED 100
[2019-04-30 06:44] LABS: TOXIC VACUOLATION PRESENT
[2019-04-30 06:45] LABS: TOXIC GRANULATION SLIGHT
[2019-04-30 06:46] LABS: ALBUMIN 2.4 g/dL (3.5-5.0); ALKALINE PHOSPHATASE 90 U/L (38-126); ASPARTATE AMINO TRANSFERASE 21 U/L (14-36); BILIRUBIN,DIRECT 0.4 mg/dL (0.0-0.4); BILIRUBIN,TOTAL 0.5 mg/dL (0.2-1.3); BLOOD UREA NITROGEN 10 mg/dL (7-20); CALCIUM 8.3 mg/dL (8.4-10.2); GLUCOSE 107 mg/dL (75-110); POTASSIUM 3.5 mmol/L (3.6-5.0); TOTAL PROTEIN 5.4 g/dL (6.3-8.2)
[2019-04-30 06:51] LABS: ANION GAP 5 (5-19); CARBON DIOXIDE 39 mmol/L (22-30); CHLORIDE 95 mmol/L (98-107)
[2019-04-30] MEDS: BUDESONIDE NEB 0.5 MG/2 ML AMPUL NEB SCH ×2 (08:35→20:31)
[2019-04-30] MEDS: DOCUSATE SODIUM 100 MG CAPSULE PO SCH ×2 (10:35→17:25)
[2019-04-30] MEDS: POTASSIUM CHLORIDE 10 MEQ TABLET.ER PO SCH (10:35)
[2019-04-30] MEDS: ENOXAPARIN SODIUM INJ 40 MG/0.4 ML DISP.SYRIN SUBCUT SCH (10:36)
[2019-04-30] MEDS: OXYCODONE-ACETAMINOPHEN 5-325 MG TABLET PO PRN ×3 (10:36→22:27)
[2019-04-30] MEDS: CEFEPIME 1 GM/D5W RTU 1 GM/50 ML RTUPB IV SCH ×2 (10:37→21:12)
[2019-04-30] MEDS: FAMOTIDINE 20 MG TABLET PO SCH ×2 (11:05→21:12)
--- NOTE | 2019-04-30 14:23 | PDOC PROGRESS REPORT ---
Subjective Progress Note for:: 04/30/19 Subjective:: It has been difficult to get the patient off of BiPAP. She still feels very short of breath. She still requires 50% FiO2. She did admit that she is a 2 pack/day smoker as well. Reason For Visit: ACUTE RESPIRATORY FAILURE WITH HYPOXIA,PNEUMONIA Physical Exam Vital Signs: Temp Pulse Resp BP Pulse Ox 98.8 F 85 24 H 138/73 H 94 04/30/19 12:58 04/30/19 13:53 04/30/19 13:53 04/30/19 12:58 04/30/19 13:53 Intake & Output 04/29/19 04/30/19 05/01/19 06:59 06:59 06:59 Intake Total 1686 1160 Output Total 300 Balance 1386 1160 Weight 96.7 kg 97.6 kg General appearance: PRESENT: cooperative - Cooperative but slow to answer questions, morbidly obese, other - Well-developed but morbidly obese 39-year-old female resting in bed on BiPAP Head exam: PRESENT: atraumatic, normocephalic Ear exam: PRESENT: normal external ear exam. ABSENT: bleeding, drainage Mouth exam: PRESENT: other - BiPAP mask in place Respiratory exam: PRESENT: prolonged expiratory phas, rales, tachypnea, wheezes - Faint expiratory wheeze. ABSENT: accessory muscle use, clear to auscultation matt, retraction Cardiovascular exam: PRESENT: RRR, +S1, +S2 GI/Abdominal exam: PRESENT: normal bowel sounds, soft, other - Protuberant abdomen. ABSENT: distended, guarding, tenderness Rectal exam: PRESENT: deferred Neurological exam: PRESENT: alert, awake, other - Still slow to answer questions. Difficult to fully assess with BiPAP mask in place. Nursing reports conversations earlier today had appropriate answers. Psychiatric exam: PRESENT: flat affect. ABSENT: agitated, anxious Skin exam: PRESENT: other - Psoriasis Results Laboratory Results: 04/30/19 05:45 04/30/19 05:45 04/29/19 04/30/19 04/30/19 18:37 05:45 05:45 WBC 17.2 H RBC 3.44 L Hgb 12.0 Hct 35.5 L MCV 103 H MCH 34.8 H MCHC 33.8 RDW 12.7 Plt Count 341 Seg Neutrophils % Not Reportable Sodium 137.8 139.1 Potassium 2.8 L* 3.5 L Chloride 92 L 95 L Carbon Dioxide 38 H 39 H Anion Gap 8 5 BUN 10 10 Creatinine 0.50 L 0.50 L Est GFR ( Amer) > 60 > 60 Glucose 112 H 107 Calcium 8.5 8.3 L Magnesium 2.4 H 2.3 Total Bilirubin 0.5 AST 21 Alkaline Phosphatase 90 Total Protein 5.4 L Albumin 2.4 L 04/26/19 09:20 Troponin I 0.033 NT-Pro-B Natriuret Pep 611 H Impressions: Chest X-Ray 04/29/19 00:00 IMPRESSION: Patchy perihilar and basilar predominant opacities with small pl eural effusions have slightly worsened since previous examination. Findings may represent mild pulmonary edema, infectious or inflammatory process. Differential includes pneumonia, influenza, or other viral etiologies. Assessment and Plan - Diagnosis (1) Acute respiratory failure with hypoxia and hypercapnia Is this a current diagnosis for this admission?: Yes Plan: 04/28/2019 Remains on BiPAP. With FiO2 55%. 04/29/2019 The patient is unable to spend much time off of the BiPAP. When I walked in the room she was sitting up and they were trying nasal cannula however the nasal can nula was resting over her left ear. We will continue the BiPAP and attempt to wean from BiPAP as tolerated. 04/30/2019 The patient is still heavily dependent on BiPAP. I have asked pulmonology to consult. (2) Pneumonia Qualifiers: Pneumonia type: due to unspecified organism Laterality: bilateral Lung location: lower lobe of lung Qualified Code(s): J18.9 - Pneumonia, unspecified organism Is this a current diagnosis for this admission?: Yes Plan: Most likely community-acquired, caused by gram-positive cocci/rods including Streptococcus pneumonia. Plan as per #1. 04/28/2019 Continue cefepime. I will add azithromycin for atypical agents. Covid 19 testing is pending. 04/29/2019 Her white count is only slightly better. She is now on dual antibiotic therapy. Will monitor closely. We will obtain a repeat chest x-ray today. 04/30/2019 Her white blood cell count is down to 17,000. The bandemia is almost resolved. She remains on dual antibiotic therapy. Pulmonology will be seeing the patient. As a 2 pack/day smoker there could be underlying COPD. I will institute a trial of steroid therapy. There could be a component of edema. Her albumin is only 2.4. Will consider IV albumin if warranted. (3) Hypokalemia Is this a current diagnosis for this admission?: Yes Plan: No acute EKG changes. Replace as needed. BMP tomorrow. 04/28/2019 Serum potassium is normal today. We will recheck tomorrow and continue to monitor. Will also check magnesium level. No obvious etiology for the low potassium. 04/29/2019 Am not sure why the potassium level has dropped to the extreme. We will initiate aggressive potassium supplementation and continue to monitor 04/30/2019 The potassium is in the lower normal range. We will continue the oral sup plementation. She did get potassium riders yesterday as well. (4) Tobacco abuse Is this a current diagnosis for this admission?: Yes Plan: Counseled on quitting. Will provide NicoDerm patch. 04/28/2019 Continue to encourage tobacco cessation 04/29/2019 The patient smokes 2 packs of cigarettes daily. A nicotine patch will be avai lable daily if needed. 04/30/2019 As above (5) Psoriasis Is this a current diagnosis for this admission?: Yes Plan: Currently not a flare. Patient has not seek any treatment for her psoriasis. Outpatient follow-up with rheumatology and PCP recommended. 04/28/2019 No acute treatment at this time especially since most treatments can be immunosuppressive. 04/29/2019 As above. The patient does deny any history of treatment with immunosuppressant therapy. (6) Obesity (BMI 30-39.9) Is this a current diagnosis for this admission?: Yes Plan: BMI 38.0. Diet and lifestyle modification recommended. We will obtain TSH, lipid panel and hemoglobin A1c. 04/28/2019 Thyroid studies are normal. Hemoglobin A1c is normal. 04/29/2019 The patient's slow recovery could certainly be partly related to her obesity. She may have obesity hypoventilation syndrome. After this illness the patient might consider discontinuing smoking, increasing exercise and an aggressive weight loss diet. (7) Hypertension Qualifiers: Hypertension type: essential hypertension Qualified Code(s): I10 - Essential (primary) hypertension Is this a current diagnosis for this admission?: Yes Plan: 04/28/2019 Blood pressures have been consistently elevated. It could be related to the acute illness. We will continue to monitor. If they persist then consider oral antihypertensive agents. 04/29/2019 Blood pressures are elevated but not significantly so. We will continue to monitor. Antihypertensive medication if indicated.
[2019-04-30] MEDS: METHYLPREDNISOLONE INJ 125 MG/2 ML SDV IV SCH ×2 (14:59→21:13)
[2019-04-30] MEDS ORDERED: NICOTINE 21 MG/24 HR PATCH.TD24 TD PRN (16:47)
[2019-04-30] MEDS: AZITHROMYCIN 500 MG in DEXTROSE 5%-WATER 250 ML IV SCH (21:12)
[2019-04-30] MEDS: NORMAL SALINE 1000 ML 1,000 ML IV PRN (21:20)
[2019-05-01] MEDS: IPRATROPIUM/ALBUTEROL 0.5-2.5 MG/3 ML AMPUL NEB SCH ×4 (02:28→20:16)
[2019-05-01 05:31] LABS: ABSOLUTE LYMPHOCYTES (AUTO) 0.7 10^3/uL (0.5-4.7); ABSOLUTE MONOCYTES (AUTO) 0.3 10^3/uL (0.1-1.4); BASOPHILS % (AUTO) 0.2 % (0-2); HEMOGLOBIN 11.4 g/dL (12.0-15.5); LYMPHOCYTES % (AUTO) 5.2 % (13-45); MEAN CORPUSCULAR HEMOGLOBIN 35.1 pg (27.0-33.4); MEAN CORPUSCULAR HGB CONC 33.6 g/dL (32.0-36.0); MEAN CORPUSCULAR VOLUME 105 fl (80-97); PLATELET COUNT 339 10^3/uL (150-450); RED BLOOD COUNT 3.25 10^6/uL (3.72-5.28); RED CELL DISTRIBUTION WIDTH 12.7 % (11.5-14.0); SEGMENTED NEUTROPHILS % (AUTO) 92.6 % (42-78); TOTAL CELLS COUNTED % (AUTO) 100 %
[2019-05-01 05:55] LABS: ALBUMIN 2.3 g/dL (3.5-5.0); ALKALINE PHOSPHATASE 80 U/L (38-126); ASPARTATE AMINO TRANSFERASE 15 U/L (14-36); BILIRUBIN,TOTAL 0.2 mg/dL (0.2-1.3); BLOOD UREA NITROGEN 17 mg/dL (7-20); CALCIUM 8.1 mg/dL (8.4-10.2); CHLORIDE 95 mmol/L (98-107); GLUCOSE 123 mg/dL (75-110); POTASSIUM 3.9 mmol/L (3.6-5.0); TOTAL PROTEIN 5.1 g/dL (6.3-8.2)
[2019-05-01 06:01] LABS: ANION GAP 3 (5-19); CARBON DIOXIDE 40 mmol/L (22-30)
[2019-05-01 06:22] LABS: ARTERIAL BLOOD BASE EXCESS 13.3 mmol/L; ARTERIAL BLOOD H2CO3 1.91 mmol/L (1.05-1.35); ARTERIAL BLOOD HCO3 40.2 mmol/L (20-24); ARTERIAL BLOOD O2 SATURATION 94.2 % (94-98); ARTERIAL BLOOD PCO2 63.5 mmHg (35-45); ARTERIAL BLOOD PH 7.42 (7.35-7.45); ARTERIAL BLOOD PO2 71.8 mmHg (80-100); ARTERIAL BLOOD TOTAL CO2 42.1 mmol/L (21-25)
[2019-05-01 06:23] LABS: ARTERIAL BLOOD FIO2 50%
[2019-05-01] MEDS: BUDESONIDE NEB 0.5 MG/2 ML AMPUL NEB SCH ×2 (08:43→20:16)
[2019-05-01] MEDS: METHYLPREDNISOLONE INJ 125 MG/2 ML SDV IV SCH ×2 (09:20→21:37)
[2019-05-01] MEDS: POTASSIUM CHLORIDE 10 MEQ TABLET.ER PO SCH (09:20)
[2019-05-01] MEDS: OXYCODONE-ACETAMINOPHEN 5-325 MG TABLET PO PRN ×2 (09:20→17:45)
[2019-05-01] MEDS: CEFEPIME 1 GM/D5W RTU 1 GM/50 ML RTUPB IV SCH ×2 (09:21→21:38)
[2019-05-01] MEDS: ENOXAPARIN SODIUM INJ 40 MG/0.4 ML DISP.SYRIN SUBCUT SCH (09:21)
[2019-05-01] MEDS: DOCUSATE SODIUM 100 MG CAPSULE PO SCH ×2 (09:21→17:44)
[2019-05-01] MEDS: FAMOTIDINE 20 MG TABLET PO SCH ×2 (09:21→21:37)
--- NOTE | 2019-05-01 12:01 | PDOC CONSULTATION ---
Consultation Consult Date: 05/01/19 Attending physician:: JOAO QUIGLEY Provider Consulted: VIKTOR LYONS Consult reason:: Respiratory failure History of Present Illness Admission Date/PCP: 04/26/19 11:48 History of Present Illness: ELLY ELLIS is a 39 year old female presented to the emergency room with shortness of breath after having the preceding week where she had good and bad days but is positive shortness of breath got worse denies a cough did says she has some yellow mucus emesis. Mocha half a pack a day for 24 years she denies history of chronic lung disease as a child or adolescent she admits to exposure to passive smoke as a child as well as an adult. 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 She denies any recent travel she denies angina-like chest pain sleeps on 2 pillows rare PND rare nocturnal cough intermittent episodes of edema of edema. She admits to snoring restless sleep nocturia 1-2 times per night unrestful sleep and excessive daytime somnolence. Past Medical History Pulmonary Medical History: Reports: Bronchitis, Pneumonia EENT Medical History: Reports: None Neurological Medical History: Reports: None Endocrine Medical History: Reports: Obesity Renal/ Medical History: Reports: None Malignancy Medical History: Reports: None GI Medical History: Denies: Cirrhosis, Crohn's Disease, Ulcerative Colitis Skin Medical History: Denies: Eczema Psychiatric Medical History: Reports: General Anxiety Disorder, Tobacco Dep endency Hematology: Denies: Sickle Cell Disease Infectious Medical History: Denies: Vancomycin-Resistant Enterococci Past Surgical History Past Surgical History: Reports: Orthopedic Surgery - left arm cyst Social History Information Source: Patient, [facility] Records Lives with: Family Smoking Status: Current Every Day Smoker Cigarettes Packs Per Day: 1.5 Number of Years Smokin Passive smoke exposure as: Both Frequency of Alcohol Use: None Hx Recreational Drug Use: No Do you have pets?: Yes Have you had any respiratory illnesses as a child?: No Have you been exposed to any sick contacts recently?: No Have you had any recent respiratory illnesses?: Yes Have you travelled outside of [place] in the past 12 months?: No Family History Family History: CAD, Hypertension Parental Family History Reviewed: Yes Children Family History Reviewed: Yes Sibling(s) Family History Reviewed.: Yes Medication/Allergy Home Medications: No Home Medications 03/30/11 Allergies/Adverse Reactions: No Known Allergies Allergy (Unverified 03/30/11 09:25) Review of Systems All systems: reviewed and no additional remarkable complaints except as stated Physical Exam Vital Signs: Temp Pulse Resp BP Pulse Ox 98.5 F 108 H 24 H 106/61 941 H 05/01/19 08:18 05/01/19 08:43 05/01/19 08:43 05/01/19 08:18 05/01/19 08:43 Intake & Output 04/30/19 05/01/19 05/02/19 06:59 06:59 06:59 Intake Total 1210 930 Balance 1210 930 Weight 97.6 kg 102.2 kg General appearance: PRESENT: cooperative, disheveled, mild distress, morbidly obese, well-developed, well-nourished Head exam: PRESENT: atraumatic, normocephalic Eye exam: PRESENT: conjunctiva pale, EOMI. ABSENT: nystagmus, periorbital swelling Mouth exam: PRESENT: dry mucosa, neck supple, tongue midline Neck exam: ABSENT: carotid bruit, full ROM, JVD, lymphadenopathy, meningismus, tenderness, thyromegaly, tracheal deviation, tracheostomy, other Respiratory exam: PRESENT: other Cardiovascular exam: PRESENT: RRR, +S1, tachycardia Pulses: PRESENT: normal radial pulses GI/Abdominal exam: PRESENT: soft. ABSENT: distended, firm, guarding, mass, tenderness Extremities exam: PRESENT: full ROM, +1 edema. ABSENT: calf tenderness, joint swelling, pedal edema, tenderness Musculoskeletal exam: ABSENT: deformity, dislocation Neurological exam: PRESENT: alert, awake Psychiatric exam: PRESENT: appropriate affect Skin exam: PRESENT: dry, warm Results Laboratory Results: 05/01/19 04:52 05/01/19 04:52 05/01/19 05/01/19 05/01/19 04:52 04:52 06:12 WBC 14.0 H RBC 3.25 L Hgb 11.4 L Hct 34.0 L MCV 105 H MCH 35.1 H MCHC 33.6 RDW 12.7 Plt Count 339 Seg Neutrophils % 92.6 H Carbonic Acid 1.91 H HCO3/H2CO3 Ratio 21:1 ABG pH 7.42 ABG pCO2 63.5 H ABG pO2 71.8 L ABG HCO3 40.2 H ABG O2 Saturation 94.2 ABG Base Excess 13.3 FiO2 50% Sodium 138.0 Potassium 3.9 Chloride 95 L Carbon Dioxide 40 H* Anion Gap 3 L BUN 17 Creatinine 0.55 Est GFR ( Amer) > 60 Glucose 123 H Calcium 8.1 L Magnesium 2.6 H Total Bilirubin 0.2 AST 15 Alkaline Phosphatase 80 Total Protein 5.1 L Albumin 2.3 L 04/26/19 10:25 Blood Blood Culture - Final NO GROWTH IN 5 DAYS 04/26/19 09:20 Blood Blood Culture - Final NO GROWTH IN 5 DAYS 04/26/19 09:20 Troponin I 0.033 NT-Pro-B Natriuret Pep 611 H Impressions: Chest X-Ray 04/29/19 00:00 IMPRESSION: Patchy perihilar and basilar predominant opacities with small pleural effusions have slightly worsened since previous examination. Findings may represent mild pulmonary edema, infectious or inflammatory process. Differential includes pneumonia, influenza, or other viral etiologies. Assessment & Plan - Diagnosis (1) Acute respiratory failure with hypoxia and hypercapnia Is this a current diagnosis for this admission?: Yes Plan: Suspected underlying obesity hypoventilation syndrome no increase BiPAP to inspiratory 18 cm and expiratory 10 cm this allowed her to achieve tidal volumes 400 450 (2) Bilateral pneumonia Qualifiers: Aspiration pneumonia type: unspecified Lung location: lower lobe of lung Is this a current diagnosis for this admission?: Yes Plan: Clinically this is improved white count is decreasing and she states she feels a little better we will maintain antibiotics as you have done (3) Obesity (BMI 30-39.9) Is this a current diagnosis for this admission?: Yes Plan: Consider nutritional consult when patient stable (4) Tobacco abuse Is this a current diagnosis for this admission?: Yes Plan: Stop smoking we discussed at length risk and dangers associated with continued tobacco use - Time Time Spent with patient: 55
--- NOTE | 2019-05-01 14:33 | PDOC PROGRESS REPORT ---
Subjective Progress Note for:: 05/01/19 Subjective:: The patient appears much better today. She is having trouble keeping her BiPAP mask in place but is having complete conversations. She is completely alert. Her breathing is more comfortable. She was seen by pulmonology today as well. Reason For Visit: ACUTE RESPIRATORY FAILURE WITH HYPOXIA,PNEUMONIA Physical Exam Vital Signs: Temp Pulse Resp BP Pulse Ox 98.4 F 80 21 H 157/88 H 95 05/01/19 12:17 05/01/19 14:00 05/01/19 12:17 05/01/19 12:17 05/01/19 12:17 Intake & Output 04/30/19 05/01/19 05/02/19 06:59 06:59 06:59 Intake Total 1210 930 170 Balance 1210 930 170 Weight 97.6 kg 102.2 kg General appearance: PRESENT: no acute distress, cooperative, morbidly obese, other - BiPAP mask in place Head exam: PRESENT: atraumatic, normocephalic Eye exam: PRESENT: conjunctiva pink. ABSENT: scleral icterus Ear exam: PRESENT: normal external ear exam. ABSENT: bleeding, drainage Neck exam: PRESENT: other - Very large neck. ABSENT: carotid bruit, JVD, lymphadenopathy Respiratory exam: PRESENT: symmetrical, tachypnea, wheezes - Sporadic expiratory wheezes. ABSENT: accessory muscle use, rales, rhonchi Cardiovascular exam: PRESENT: RRR, +S1, +S2, other - Difficult to auscultate due to BiPAP GI/Abdominal exam: PRESENT: normal bowel sounds, soft, other - Protuberant abdomen. ABSENT: guarding, tenderness Rectal exam: PRESENT: deferred Extremities exam: PRESENT: pedal edema, other - Hands are puffy Neurological exam: PRESENT: alert, awake, oriented to person, oriented to place, oriented to time, oriented to situation, CN II-XII grossly intact. ABSENT: altered Psychiatric exam: PRESENT: appropriate affect. ABSENT: agitated, anxious Focused psych exam: ABSENT: delusional, paranoid, restlessness Skin exam: PRESENT: dry, rash - Psoriasis, warm Results Laboratory Results: 05/01/19 04:52 05/01/19 04:52 05/01/19 05/01/19 05/01/19 04:52 04:52 06:12 WBC 14.0 H RBC 3.25 L Hgb 11.4 L Hct 34.0 L MCV 105 H MCH 35.1 H MCHC 33.6 RDW 12.7 Plt Count 339 Seg Neutrophils % 92.6 H Carbonic Acid 1.91 H HCO3/H2CO3 Ratio 21:1 ABG pH 7.42 ABG pCO2 63.5 H ABG pO2 71.8 L ABG HCO3 40.2 H ABG O2 Saturation 94.2 ABG Base Excess 13.3 FiO2 50% Sodium 138.0 Potassium 3.9 Chloride 95 L Carbon Dioxide 40 H* Anion Gap 3 L BUN 17 Creatinine 0.55 Est GFR ( Amer) > 60 Glucose 123 H Calcium 8.1 L Magnesium 2.6 H Total Bilirubin 0.2 AST 15 Alkaline Phosphatase 80 Total Protein 5.1 L Albumin 2.3 L 04/26/19 10:25 Blood Blood Culture - Final NO GROWTH IN 5 DAYS 04/26/19 09:20 Blood Blood Culture - Final NO GROWTH IN 5 DAYS 04/26/19 09:20 Troponin I 0.033 NT-Pro-B Natriuret Pep 611 H Impressions: Chest X-Ray 04/29/19 00:00 IMPRESSION: Patchy perihilar and basilar predominant opacities with small pleural effusions have slightly worsened since previous examination. Findings may represent mild pulmonary edema, infectious or inflammatory process. Differential includes pneumonia, influenza, or other viral etiologies. Assessment and Plan - Diagnosis (1) Acute respiratory failure with hypoxia and hypercapnia Is this a current diagnosis for this admission?: Yes Plan: 04/28/2019 Remains on BiPAP. With FiO2 55%. 04/29/2019 The patient is unable to spend much time off of the BiPAP. When I walked in the room she was sitting up and they were trying nasal cannula however the nasal cannula was resting over her left ear. We will continue the BiPAP and attempt to wean from BiPAP as tolerated. 04/30/2019 The patient is still heavily dependent on BiPAP. I have asked pulmonology to consult. 05/01/[address] Dutta adjusted the settings. She is significantly improved (2) Pneumonia Qualifiers: Pneumonia type: due to unspecified organism Laterality: bilateral Lung location: lower lobe of lung Qualified Code(s): J18.9 - Pneumonia, unspecified organism Is this a current diagnosis for this admission?: Yes Plan: Most likely community-acquired, caused by gram-positive cocci/rods including Streptococcus pneumonia. Plan as per #1. 04/28/2019 Continue cefepime. I will add azithromycin for atypical agents. Covid 19 testing is pending. 04/29/2019 Her white count is only slightly better. She is now on dual antibiotic therapy. Will monitor closely. We will obtain a repeat chest x-ray today. 04/30/2019 Her white blood cell count is down to 17,000. The bandemia is almost resolved. She remains on dual antibiotic therapy. Pulmonology will be seeing the patient. As a 2 pack/day smoker there could be underlying COPD. I will institute a trial of steroid therapy. There could be a component of edema. Her albumin is only 2.4. Will consider IV albumin if warranted. 05/01/2019 Continue antibiotic therapy. Her white blood cell count continues to improve. Her respiratory status is improved as well. (3) Hypokalemia Is this a current diagnosis for this admission?: Yes Plan: No acute EKG changes. Replace as needed. BMP tomorrow. 04/28/2019 Serum potassium is normal today. We will recheck tomorrow and continue to monitor. Will also check magnesium level. No obvious etiology for the low potassium. 04/29/2019 Am not sure why the potassium level has dropped to the extreme. We will initiate aggressive potassium supplementation and continue to monitor 04/30/2019 The potassium is in the lower normal range. We will continue the oral sup plementation. She did get potassium riders yesterday as well. 05/01/2019 Potassium is remaining in the normal range with oral supplementation. The patient would benefit from a work-up as an outpatient to check aldosterone. (4) Tobacco abuse Is this a current diagnosis for this admission?: Yes Plan: Counseled on quitting. Will provide NicoDerm patch. 04/28/2019 Continue to encourage tobacco cessation 04/29/2019 The patient smokes 2 packs of cigarettes daily. A nicotine patch will be available daily if needed. 04/30/2019 As above 05/01/2019 I emphasized that part of her respiratory problem and slow recovery can be blamed on smoking. We will continue to strongly encourage cessation (5) Psoriasis Is this a current diagnosis for this admission?: Yes Plan: Currently not a flare. Patient has not seek any treatment for her psoriasis. Outpatient follow-up with rheumatology and PCP recommended. 04/28/2019 No acute treatment at this time especially since most treatments can be immunosuppressive. 04/29/2019 As above. The patient does deny any history of treatment with immunosuppressant therapy. (6) Obesity (BMI 30-39.9) Is this a current diagnosis for this admission?: Yes Plan: BMI 38.0. Diet and lifestyle modification recommended. We will obtain TSH, lipid panel and hemoglobin A1c. 04/28/2019 Thyroid studies are normal. Hemoglobin A1c is normal. 04/29/2019 The patient's slow recovery could certainly be partly related to her obesity. She may have obesity hypoventilation syndrome. After this illness the patient might consider discontinuing smoking, increasing exercise and an aggressive weight loss diet. 05/01/2019 The patient's BMI is now 41.2. I believe this is from fluid retention and that her baseline BMI still remains under 40. (7) Hypertension Qualifiers: Hypertension type: essential hypertension Qualified Code(s): I10 - Essential (primary) hypertension Is this a current diagnosis for this admission?: Yes Plan: 04/28/2019 Blood pressures have been consistently elevated. It could be related to the acute illness. We will continue to monitor. If they persist then consider oral antihypertensive agents. 04/29/2019 Blood pressures are elevated but not significantly so. We will continue to monitor. Antihypertensive medication if indicated. 05/01/2019 Blood pressures remain elevated. Because of her alkalosis I am going to treat with several days of Diamox. She will likely require chronic antihypertensive medications post discharge. (8) Metabolic alkalosis Is this a current diagnosis for this admission?: Yes Plan: 05/01/2019 Most likely secondary to aggressive therapy with BiPAP. Cannot rule out other causes. Diamox trial instituted as above. - Time Time Spent with patient: 15-24 minutes Smoking Cessation Education: 3 to 10 minutes Medications reviewed and adjusted accordingly: Yes Anticipated discharge: Home
[2019-05-01] MEDS: NORMAL SALINE 1000 ML 1,000 ML IV PRN (17:44)
[2019-05-01] MEDS: ACETAZOLAMIDE 250 MG TABLET PO SCH (21:37)
[2019-05-01] MEDS: AZITHROMYCIN 500 MG in DEXTROSE 5%-WATER 250 ML IV SCH (22:23)
[2019-05-01] MEDS ORDERED: AZITHROMYCIN INJ 500 MG VIAL IV ONE (22:51)
[2019-05-02] MEDS: IPRATROPIUM/ALBUTEROL 0.5-2.5 MG/3 ML AMPUL NEB SCH ×4 (02:06→20:57)
[2019-05-02] MEDS: ACETAZOLAMIDE 250 MG TABLET PO SCH ×3 (05:45→21:08)
[2019-05-02 06:24] LABS: HEMATOCRIT 34.1 % (36.0-47.0); HEMOGLOBIN 11.2 g/dL (12.0-15.5); MEAN CORPUSCULAR HEMOGLOBIN 34.7 pg (27.0-33.4); MEAN CORPUSCULAR HGB CONC 32.9 g/dL (32.0-36.0); MEAN CORPUSCULAR VOLUME 106 fl (80-97); PLATELET COUNT 351 10^3/uL (150-450); RED BLOOD COUNT 3.23 10^6/uL (3.72-5.28); RED CELL DISTRIBUTION WIDTH 13.3 % (11.5-14.0); WHITE BLOOD COUNT 16.9 10^3/uL (4.0-10.5)
[2019-05-02 06:33] LABS: ALBUMIN 2.4 g/dL (3.5-5.0); ALKALINE PHOSPHATASE 66 U/L (38-126); ASPARTATE AMINO TRANSFERASE 18 U/L (14-36); BILIRUBIN,DIRECT 0.2 mg/dL (0.0-0.4); BILIRUBIN,TOTAL 0.2 mg/dL (0.2-1.3); BLOOD UREA NITROGEN 24 mg/dL (7-20); CALCIUM 8.2 mg/dL (8.4-10.2); GLUCOSE 124 mg/dL (75-110); POTASSIUM 4.6 mmol/L (3.6-5.0); TOTAL PROTEIN 5.4 g/dL (6.3-8.2)
[2019-05-02 06:38] LABS: CARBON DIOXIDE 38 mmol/L (22-30); CHLORIDE 98 mmol/L (98-107)
[2019-05-02 06:39] LABS: ANION GAP 4 (5-19)
[2019-05-02 07:06] LABS: ABSOLUTE MONOCYTES # (MANUAL) 0.8 10^3/uL (0.1-1.4); BASOPHILS % (MANUAL) 0 % (0-2); EOSINOPHILS % (MANUAL) 0 % (0-6); LYMPHOCYTES % (MANUAL) 6 % (13-45); METAMYELOCYTES % (MANUAL) 1 % (0-1); MONOCYTES % (MANUAL) 5 % (3-13); SEGMENTED NEUTROPHILS % (MAN) 87 % (42-78); TOTAL CELLS COUNTED 100
[2019-05-02 07:07] LABS: MYELOCYTES % (MANUAL) 1 % (0)
[2019-05-02 07:10] LABS: TOXIC GRANULATION 1+
[2019-05-02 07:11] LABS: BURR CELLS SLIGHT; PLATELET COMMENT ADEQUATE; POLYCHROMASIA SLIGHT; STOMATOCYTES SLIGHT
[2019-05-02] MEDS: METHYLPREDNISOLONE INJ 125 MG/2 ML SDV IV SCH ×2 (10:25→21:07)
[2019-05-02] MEDS: DOCUSATE SODIUM 100 MG CAPSULE PO SCH ×2 (10:25→17:46)
[2019-05-02] MEDS: CEFEPIME 1 GM/D5W RTU 1 GM/50 ML RTUPB IV SCH ×2 (10:25→21:07)
[2019-05-02] MEDS: POTASSIUM CHLORIDE 10 MEQ TABLET.ER PO SCH (10:25)
[2019-05-02] MEDS: ENOXAPARIN SODIUM INJ 40 MG/0.4 ML DISP.SYRIN SUBCUT SCH (10:25)
[2019-05-02] MEDS: FAMOTIDINE 20 MG TABLET PO SCH ×2 (10:26→21:08)
[2019-05-02] MEDS: OXYCODONE-ACETAMINOPHEN 5-325 MG TABLET PO PRN ×2 (10:41→21:08)
[2019-05-02] MEDS: BUDESONIDE NEB 0.5 MG/2 ML AMPUL NEB SCH ×2 (10:41→20:57)
--- NOTE | 2019-05-02 11:21 | RADIOLOGY REPORT (SQ) ---
EXAM DESCRIPTION: CHEST SINGLE VIEW COMPLETED DATE/TIME: 05/02/2019 10:46 am REASON FOR STUDY: pna COMPARISON: 04/29/2019 NUMBER OF VIEWS: One view. TECHNIQUE: Single frontal radiographic image of the chest acquired. LIMITATIONS: None. FINDINGS: LUNGS AND PLEURA: Bilateral airspace disease, right greater than left with slightly better definition of the right diaphragm. Small effusions. MEDIASTINUM AND HEART: Stable heart size and mediastinal structures. BONY STRUCTURES: No acute findings. HARDWARE: None. OTHER: No other significant finding. IMPRESSION: Bilateral pneumonia. Slight improvement. TECHNICAL DOCUMENTATION: JOB ID: [id number] Reading location - IP/workstation name: [email or web address]
[2019-05-02 12:57] LABS: PATH REVIEW PATHOLOGIST REVIEWED
[2019-05-02] MEDS ORDERED: FUROSEMIDE INJ/PF 20 MG/2 ML SDV IV ONE (13:47)
--- NOTE | 2019-05-02 14:08 | PDOC PROGRESS REPORT ---
Subjective Progress Note for:: 05/02/19 Subjective:: The patient is sitting up in a chair. She has been off of BiPAP most of the morning. She still requires oxygen therapy. She states that she is feeling a little better and is pleased to be off of the BiPAP for several hours. Reason For Visit: ACUTE RESPIRATORY FAILURE WITH HYPOXIA,PNEUMONIA Physical Exam Vital Signs: Temp Pulse Resp BP Pulse Ox 97.7 F 74 20 126/77 H 94 05/02/19 08:36 05/02/19 10:49 05/02/19 10:49 05/02/19 08:36 05/02/19 10:49 Intake & Output 05/01/19 05/02/19 05/03/19 06:59 06:59 06:59 Intake Total 930 2330 50 Balance 930 2330 50 Weight 102.2 kg 104.8 kg General appearance: PRESENT: no acute distress, morbidly obese, well-developed Head exam: PRESENT: atraumatic, normocephalic Neck exam: PRESENT: other - Large neck. Respiratory exam: PRESENT: rales, symmetrical, unlabored, wheezes - Sporadic expiratory wheezes. ABSENT: rhonchi, tachypnea Cardiovascular exam: PRESENT: RRR, +S1, +S2 GI/Abdominal exam: PRESENT: normal bowel sounds, soft, other - Protuberant abdomen. ABSENT: distended, tenderness Rectal exam: PRESENT: deferred Gentrourinary exam: ABSENT: indwelling catheter Neurological exam: PRESENT: alert, awake, oriented to person, oriented to place, oriented to time, oriented to situation, CN II-XII grossly intact. ABSENT: altered Psychiatric exam: PRESENT: appropriate affect. ABSENT: agitated, anxious Results Laboratory Results: 05/02/19 05:34 05/02/19 05:21 05/02/19 05/02/19 05:21 05:34 WBC 16.9 H RBC 3.23 L Hgb 11.2 L Hct 34.1 L MCV 106 H MCH 34.7 H MCHC 32.9 RDW 13.3 Plt Count 351 Seg Neutrophils % Not Reportable Sodium 138.9 Potassium 4.6 Chloride 98 Carbon Dioxide 38 H Anion Gap 4 L BUN 24 H Creatinine 0.63 Est GFR ( Amer) > 60 Glucose 124 H Calcium 8.2 L Magnesium 2.8 H Total Bilirubin 0.2 AST 18 Alkaline Phosphatase 66 Total Protein 5.4 L Albumin 2.4 L 04/26/19 10:25 Blood Blood Culture - Final NO GROWTH IN 5 DAYS 04/26/19 09:20 Troponin I 0.033 NT-Pro-B Natriuret Pep 611 H Impressions: Chest X-Ray 05/02/19 08:00 IMPRESSION: Bilateral pneumonia. Slight improvement. Assessment and Plan - Diagnosis (1) Acute respiratory failure with hypoxia and hypercapnia Is this a current diagnosis for this admission?: Yes Plan: 04/28/2019 Remains on BiPAP. With FiO2 55%. 04/29/2019 The patient is unable to spend much time off of the BiPAP. When I walked in the room she was sitting up and they were trying nasal cannula however the nasal cannula was resting over her left ear. We will continue the BiPAP and attempt to wean from BiPAP as tolerated. 04/30/2019 The patient is still heavily dependent on BiPAP. I have asked pulmonology to consult. 05/01/[address] Dutta adjusted the settings. She is significantly improved 05/02/2019 The patient has been off of BiPAP for several hours. This is the longest window. She is remaining awake and alert and discussing issues appropriately. She still has wheezes and some rales. She still requires 4 L nasal cannula. (2) Pneumonia Qualifiers: Pneumonia type: due to unspecified organism Laterality: bilateral Lung location: lower lobe of lung Qualified Code(s): J18.9 - Pneumonia, unspecified organism Is this a current diagnosis for this admission?: Yes Plan: Most likely community-acquired, caused by gram-positive cocci/rods including Streptococcus pneumonia. Plan as per #1. 04/28/2019 Continue cefepime. I will add azithromycin for atypical agents. Covid 19 testing is pending. 04/29/2019 Her white count is only slightly better. She is now on dual antibiotic therapy. Will monitor closely. We will obtain a repeat chest x-ray today. 04/30/2019 Her white blood cell count is down to 17,000. The bandemia is almost resolved. She remains on dual antibiotic therapy. Pulmonology will be seeing the patient. As a 2 pack/day smoker there could be underlying COPD. I will institute a trial of steroid therapy. There could be a component of edema. Her albumin is only 2.4. Will consider IV albumin if warranted. 05/01/2019 Continue antibiotic therapy. Her white blood cell count continues to improve. Her respiratory status is improved as well. 05/02/2019 Her white count is slightly higher but we did introduce a trial of steroids. Continue antibiotics. Chest x-ray today in fact looks slightly better. (3) Hypokalemia Is this a current diagnosis for this admission?: Yes Plan: No acute EKG changes. Replace as needed. BMP tomorrow. 04/28/2019 Serum potassium is normal today. We will recheck tomorrow and continue to mo nitor. Will also check magnesium level. No obvious etiology for the low potassium. 04/29/2019 Am not sure why the potassium level has dropped to the extreme. We will initiate aggressive potassium supplementation and continue to monitor 04/30/2019 The potassium is in the lower normal range. We will continue the oral supplementation. She did get potassium riders yesterday as well. 05/01/2019 Potassium is remaining in the normal range with oral supplementation. The patient would benefit from a work-up as an outpatient to check aldosterone. 05/02/2019 On 40 mEq daily the potassium jumped up to 4.6. I am going to reduce the potassium to 20 mEq daily. I am also giving a dose of furosemide today. We will continue to monitor potassium. (4) Metabolic alkalosis Is this a current diagnosis for this admission?: Yes Plan: 05/01/2019 Most likely secondary to aggressive therapy with BiPAP. Cannot rule out other causes. Diamox trial instituted as above. 05/02/2019 Currently on a trial of Diamox. Serum bicarb is starting to decrease. I may need to increase the Diamox. (5) Tobacco abuse Is this a current diagnosis for this admission?: Yes Plan: Counseled on quitting. Will provide NicoDerm patch. 04/28/2019 Continue to encourage tobacco cessation 04/29/2019 The patient smokes 2 packs of cigarettes daily. A nicotine patch will be available daily if needed. 04/30/2019 As above 05/01/2019 I emphasized that part of her respiratory problem and slow recovery can be blamed on smoking. We will continue to strongly encourage cessation (6) Psoriasis Is this a current diagnosis for this admission?: Yes Plan: Currently not a flare. Patient has not seek any treatment for her psoriasis. Outpatient follow-up with rheumatology and PCP recommended. 04/28/2019 No acute treatment at this time especially since most treatments can be immunosuppressive. 04/29/2019 As above. The patient does deny any history of treatment with immunosuppressant therapy. (7) Obesity (BMI 30-39.9) Is this a current diagnosis for this admission?: Yes Plan: BMI 38.0. Diet and lifestyle modification recommended. We will obtain TSH, lipid panel and hemoglobin A1c. 04/28/2019 Thyroid studies are normal. Hemoglobin A1c is normal. 04/29/2019 The patient's slow recovery could certainly be partly related to her obesity. She may have obesity hypoventilation syndrome. After this illness the patient might consider discontinuing smoking, increasing exercise and an aggressive weight loss diet. 05/01/2019 The patient's BMI is now 41.2. I believe this is from fluid retention and that her baseline BMI still remains under 40. (8) Hypertension Qualifiers: Hypertension type: essential hypertension Qualified Code(s): I10 - Essential (primary) hypertension Is this a current diagnosis for this admission?: Yes Plan: 04/28/2019 Blood pressures have been consistently elevated. It could be related to the acute illness. We will continue to monitor. If they persist then consider oral antihypertensive agents. 04/29/2019 Blood pressures are elevated but not significantly so. We will continue to monitor. Antihypertensive medication if indicated. 05/01/2019 Blood pressures remain elevated. Because of her alkalosis I am going to treat with several days of Diamox. She will likely require chronic antihypertensive medications post discharge. - Time Time Spent with patient: 15-24 minutes Medications reviewed and adjusted accordingly: Yes Anticipated discharge: Home
[2019-05-02] MEDS ORDERED: ALBUMIN HUMAN 12.5 GM/50 ML RTUINJ IV ONE (15:00)
[2019-05-02 15:06] LABS: ARTERIAL BLOOD BASE EXCESS 7.4 mmol/L; ARTERIAL BLOOD H2CO3 1.63 mmol/L (1.05-1.35); ARTERIAL BLOOD HCO3 33.8 mmol/L (20-24); ARTERIAL BLOOD O2 SATURATION 87.5 % (94-98); ARTERIAL BLOOD PCO2 54.1 mmHg (35-45); ARTERIAL BLOOD PH 7.41 (7.35-7.45); ARTERIAL BLOOD PO2 53.3 mmHg (80-100); ARTERIAL BLOOD TOTAL CO2 35.5 mmol/L (21-25)
[2019-05-02 15:08] LABS: ARTERIAL BLOOD FIO2 36%
[2019-05-02] MEDS: AZITHROMYCIN 500 MG in DEXTROSE 5%-WATER 250 ML IV SCH (21:08)
[2019-05-03] MEDS: IPRATROPIUM/ALBUTEROL 0.5-2.5 MG/3 ML AMPUL NEB SCH ×4 (01:55→20:27)
[2019-05-03 05:26] LABS: HEMATOCRIT 35.1 % (36.0-47.0); HEMOGLOBIN 11.6 g/dL (12.0-15.5); MEAN CORPUSCULAR HEMOGLOBIN 34.7 pg (27.0-33.4); MEAN CORPUSCULAR HGB CONC 33.1 g/dL (32.0-36.0); MEAN CORPUSCULAR VOLUME 105 fl (80-97); PLATELET COUNT 356 10^3/uL (150-450); RED BLOOD COUNT 3.35 10^6/uL (3.72-5.28); RED CELL DISTRIBUTION WIDTH 12.9 % (11.5-14.0); WHITE BLOOD COUNT 21.9 10^3/uL (4.0-10.5)
[2019-05-03] MEDS: ACETAZOLAMIDE 250 MG TABLET PO SCH ×3 (05:32→21:43)
[2019-05-03 05:50] LABS: ABSOLUTE LYMPHOCYTES# (MANUAL) 1.8 10^3/uL (0.5-4.7); ABSOLUTE MONOCYTES # (MANUAL) 0.9 10^3/uL (0.1-1.4); BASOPHILS % (MANUAL) 0 % (0-2); EOSINOPHILS % (MANUAL) 0 % (0-6); LYMPHOCYTES % (MANUAL) 8 % (13-45); METAMYELOCYTES % (MANUAL) 1 % (0-1); MONOCYTES % (MANUAL) 4 % (3-13); PLATELET COMMENT ADEQUATE; POLYCHROMASIA SLIGHT; SEGMENTED NEUTROPHILS % (MAN) 87 % (42-78); TEAR DROP CELLS SLIGHT; TOTAL CELLS COUNTED 100; TOXIC GRANULATION 1+
[2019-05-03 05:52] LABS: ANION GAP 6 (5-19); BLOOD UREA NITROGEN 27 mg/dL (7-20); CALCIUM 8.6 mg/dL (8.4-10.2); CARBON DIOXIDE 30 mmol/L (22-30); CHLORIDE 103 mmol/L (98-107); GLUCOSE 121 mg/dL (75-110); POTASSIUM 4.5 mmol/L (3.6-5.0)
[2019-05-03] MEDS: BUDESONIDE NEB 0.5 MG/2 ML AMPUL NEB SCH ×2 (08:48→20:27)
[2019-05-03] MEDS: FAMOTIDINE 20 MG TABLET PO SCH ×2 (09:42→21:34)
[2019-05-03] MEDS: DOCUSATE SODIUM 100 MG CAPSULE PO SCH ×2 (09:42→17:31)
[2019-05-03] MEDS: POTASSIUM CHLORIDE 10 MEQ TABLET.ER PO SCH (09:42)
[2019-05-03] MEDS: CEFEPIME 1 GM/D5W RTU 1 GM/50 ML RTUPB IV SCH ×2 (09:42→21:35)
[2019-05-03] MEDS: FUROSEMIDE 20 MG TABLET PO SCH (09:42)
[2019-05-03] MEDS: METHYLPREDNISOLONE INJ 125 MG/2 ML SDV IV SCH ×2 (09:43→21:35)
[2019-05-03] MEDS: ENOXAPARIN SODIUM INJ 40 MG/0.4 ML DISP.SYRIN SUBCUT SCH (09:43)
--- NOTE | 2019-05-03 16:40 | PDOC PROGRESS REPORT ---
Subjective Progress Note for:: 05/03/19 Subjective:: No adverse events overnight. No fevers. Congested cough. Feels fatigued. She is able to rest. Reason For Visit: ACUTE RESPIRATORY FAILURE WITH HYPOXIA,PNEUMONIA Physical Exam Vital Signs: Temp Pulse Resp BP Pulse Ox 98.5 F 89 18 146/70 H 91 L 05/03/19 14:49 05/03/19 14:49 05/03/19 14:49 05/03/19 14:49 05/03/19 14:49 Intake & Output 05/02/19 05/03/19 05/04/19 06:59 06:59 06:59 Intake Total 2330 2330 590 Balance 2330 2330 590 Weight 104.8 kg 104.5 kg 104.5 kg General appearance: PRESENT: no acute distress, cooperative, disheveled, morbidly obese Respiratory exam: PRESENT: prolonged expiratory phas, rhonchi, symmetrical, unlabored, wheezes. ABSENT: accessory muscle use, chest wall tenderness, crackles, retraction, tachypnea Cardiovascular exam: PRESENT: RRR, +S1, +S2 Pulses: PRESENT: normal carotid pulses Vascular exam: PRESENT: normal capillary refill GI/Abdominal exam: PRESENT: normal bowel sounds, soft. ABSENT: distended, guarding, rebound, tenderness Extremities exam: ABSENT: clubbing, pedal edema Musculoskeletal exam: PRESENT: normal inspection. ABSENT: deformity Neurological exam: PRESENT: alert, awake, oriented to person, oriented to place, oriented to situation Psychiatric exam: PRESENT: appropriate affect, normal mood Skin exam: PRESENT: dry, warm Results Laboratory Results: 05/03/19 05:03 05/03/19 05:03 05/03/19 05/03/19 05:03 05:03 WBC 21.9 H RBC 3.35 L Hgb 11.6 L Hct 35.1 L MCV 105 H MCH 34.7 H MCHC 33.1 RDW 12.9 Plt Count 356 Seg Neutrophils % Not Reportable Sodium 138.8 Potassium 4.5 Chloride 103 Carbon Dioxide 30 Anion Gap 6 BUN 27 H Creatinine 0.79 Est GFR ( Amer) > 60 Glucose 121 H Calcium 8.6 Magnesium 2.5 H 05/01/19 17:10 Sputum Gram Stain - Final 05/01/19 17:10 Sputum Sputum Culture - Final C.albicans/C.dubliniensis Reduced Normal Olga Lidia 04/26/19 09:20 Troponin I 0.033 NT-Pro-B Natriuret Pep 611 H Impressions: Chest X-Ray 05/02/19 08:00 IMPRESSION: Bilateral pneumonia. Slight improvement. Assessment and Plan - Diagnosis (1) Acute respiratory failure with hypoxia Is this a current diagnosis for this admission?: Yes Plan: She has bronchospasm induced by her pneumonia. She may have undiagnosed COPD. She smokes between 2 and 2-1/2 packs of cigarettes a day. (2) Bilateral pneumonia Qualifiers: Aspiration pneumonia type: unspecified Lung location: lower lobe of lung Is this a current diagnosis for this admission?: Yes Plan: Continue antibiotics and adjuvant steroids, due to her bronchospasm, along with bronchodilators. Cultures pending. (3) Obesity (BMI 30-39.9) Is this a current diagnosis for this admission?: Yes Plan: Strongly encouraged lifestyle modification - Time Time Spent with patient: 15-24 minutes
[2019-05-03] MEDS: OXYCODONE-ACETAMINOPHEN 5-325 MG TABLET PO PRN (21:34)
[2019-05-03] MEDS: AZITHROMYCIN 500 MG in DEXTROSE 5%-WATER 250 ML IV SCH (21:35)
[2019-05-04] MEDS: IPRATROPIUM/ALBUTEROL 0.5-2.5 MG/3 ML AMPUL NEB SCH ×4 (02:58→19:59)
[2019-05-04] MEDS: ACETAZOLAMIDE 250 MG TABLET PO SCH ×2 (06:21→14:57)
[2019-05-04] MEDS: BUDESONIDE NEB 0.5 MG/2 ML AMPUL NEB SCH ×2 (07:56→19:59)
[2019-05-04] MEDS: ENOXAPARIN SODIUM INJ 40 MG/0.4 ML DISP.SYRIN SUBCUT SCH (09:56)
[2019-05-04] MEDS: POTASSIUM CHLORIDE 10 MEQ TABLET.ER PO SCH (09:57)
[2019-05-04] MEDS: METHYLPREDNISOLONE INJ 125 MG/2 ML SDV IV SCH ×2 (09:57→21:12)
[2019-05-04] MEDS: DOCUSATE SODIUM 100 MG CAPSULE PO SCH ×2 (09:57→17:58)
[2019-05-04] MEDS: FUROSEMIDE 20 MG TABLET PO SCH (09:57)
[2019-05-04] MEDS: CEFEPIME 1 GM/D5W RTU 1 GM/50 ML RTUPB IV SCH (10:55)
[2019-05-04] MEDS: FAMOTIDINE 20 MG TABLET PO SCH ×2 (10:55→21:13)
--- NOTE | 2019-05-04 16:21 | PDOC PROGRESS REPORT ---
Subjective Progress Note for:: 05/04/19 Subjective:: No adverse events overnight. Breathing is feeling progressively better. She feels okay at rest but feels better with oxygen when she gets up and walks to the bathroom. No fevers. She tested negative for coronavirus infection. Reason For Visit: ACUTE RESPIRATORY FAILURE WITH HYPOXIA,PNEUMONIA Physical Exam Vital Signs: Temp Pulse Resp BP Pulse Ox 97.4 F 72 23 H 125/73 94 05/04/19 15:32 05/04/19 15:32 05/04/19 15:32 05/04/19 15:32 05/04/19 15:32 Intake & Output 05/03/19 05/04/19 05/05/19 06:59 06:59 06:59 Intake Total 2330 590 540 Balance 2330 590 540 Weight 104.5 kg 102.4 kg General appearance: PRESENT: no acute distress, cooperative, disheveled, morbidly obese Respiratory exam: PRESENT: Diminished breath sounds, symmetrical, unlabored. ABSENT: accessory muscle use, chest wall tenderness, crackles, retraction, tachypnea, prolonged expiratory phase, wheezes. Cardiovascular exam: PRESENT: RRR, +S1, +S2 Pulses: PRESENT: normal carotid pulses Vascular exam: PRESENT: normal capillary refill GI/Abdominal exam: PRESENT: normal bowel sounds, soft. ABSENT: distended, gua rding, rebound, tenderness Extremities exam: ABSENT: clubbing, pedal edema Musculoskeletal exam: PRESENT: normal inspection. ABSENT: deformity Neurological exam: PRESENT: alert, awake, oriented to person, oriented to place, oriented to situation Psychiatric exam: PRESENT: appropriate affect, normal mood Skin exam: PRESENT: dry, warm Results Laboratory Results: 05/03/19 05:03 05/03/19 05:03 04/26/19 09:20 Troponin I 0.033 NT-Pro-B Natriuret Pep 611 H Impressions: Chest X-Ray 05/02/19 08:00 IMPRESSION: Bilateral pneumonia. Slight improvement. Assessment and Plan - Diagnosis (1) Acute respiratory failure with hypoxia Is this a current diagnosis for this admission?: Yes Plan: Stable on 2 L per nasal cannula. We will try to wean oxygen as tolerated. Breathing much more comfortably today. (2) Bilateral pneumonia Qualifiers: Aspiration pneumonia type: unspecified Lung location: lower lobe of lung Is this a current diagnosis for this admission?: Yes Plan: Continue antibiotics, along with bronchodilators. Cultures pending. Can probably start to de-escalate steroids tomorrow. (3) Obesity (BMI 30-39.9) Is this a current diagnosis for this admission?: Yes Plan: Strongly encouraged lifestyle modification - Time Time Spent with patient: 15-24 minutes
[2019-05-04] MEDS: ACETAMINOPHEN 325 MG TABLET PO PRN (21:12)
[2019-05-04] MEDS: AZITHROMYCIN 500 MG in DEXTROSE 5%-WATER 250 ML IV SCH (21:13)
[2019-05-05] MEDS: IPRATROPIUM/ALBUTEROL 0.5-2.5 MG/3 ML AMPUL NEB SCH ×4 (01:59→20:16)
[2019-05-05] MEDS: ACETAMINOPHEN 325 MG TABLET PO PRN (05:03)
[2019-05-05] MEDS: BUDESONIDE NEB 0.5 MG/2 ML AMPUL NEB SCH ×2 (08:32→20:16)
[2019-05-05] MEDS: METHYLPREDNISOLONE INJ 40 MG/1 ML SDV IV SCH ×2 (09:50→21:48)
[2019-05-05] MEDS: FUROSEMIDE 20 MG TABLET PO SCH (09:50)
[2019-05-05] MEDS: POTASSIUM CHLORIDE 10 MEQ TABLET.ER PO SCH (09:50)
[2019-05-05] MEDS: ENOXAPARIN SODIUM INJ 40 MG/0.4 ML DISP.SYRIN SUBCUT SCH (09:50)
[2019-05-05] MEDS: FAMOTIDINE 20 MG TABLET PO SCH ×2 (09:50→21:48)
[2019-05-05] MEDS: DOCUSATE SODIUM 100 MG CAPSULE PO SCH ×2 (09:51→17:43)
[2019-05-05] MEDS ORDERED: METHYLPREDNISOLONE INJ 125 MG/2 ML SDV IV SCH (10:00)
--- NOTE | 2019-05-05 10:11 | PDOC PROGRESS REPORT ---
Subjective Progress Note for:: 05/05/19 Subjective:: 39 year old female past medical untreated psoriasis and tobacco abuse presenting to ED complaining of subjective fever, chills, cough, sore throat, generalized fatigue and muscle ache. Patient is stating that about a week ago she she was having headache and rhinorr hea and thought she was having sinus infection, headache and rhinorrhea resolved but patient started having intermittent productive cough and shortness of breath since Thursday associated with subjective fever, chills, sore throat, generalized fatigue and muscle ache. Denies any chest pain, nausea, vomiting, abdominal pain, diarrhea, constipation or any urinary symptoms. Denies any recent travel or exposure to anybody with similar symptoms. 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 In ED was noted to be hypoxic on room air, with chest x-ray positive for patchy bibasilar and perihilar opacities CBC with neutrophilic leukocytosis and bandemia, and mildly elevated troponins. Influenza type A/B- COVID-19 screening by ER physician was negative however given presentation patient was still considered a possible suspect for COVID-19. 04/27/2019. No acute events overnight. Patient still complaining of generalized fatigue, sore throat, cough, and he still dependent on BiPAP. Denies any chest pain, nausea, vomiting, diarrhea, constipation or any urinary symptoms. 04/28/19-The patient is still wheezy and she is still on BiPAP this morning. She reports that she is not feeling better. She remains afebrile with intermittent tachycardia. 04/29/19-Patient is sitting on the edge of the bed. She is struggling to put her gown back on. Her oxygen cannula tubing is looped over her ear. She is slow to answer questions. She has a very gravelly voice. 04/30/19-It has been difficult to get the patient off of BiPAP. She still feels very short of breath. She still requires 50% FiO2. She did admit that she is a 2 pack/day smoker as well. 05/01/19-The patient appears much better today. She is having trouble keeping her BiPAP mask in place but is having complete conversations. She is completely alert. Her breathing is more comfortable. She was seen by pulmonology today as well. 05/02/19-The patient is sitting up in a chair. She has been off of BiPAP most of the morning. She still requires oxygen therapy. She states that she is feeling a little better and is pleased to be off of the BiPAP for several hours. 05/03/19- No adverse events overnight. No fevers. Congested cough. Feels fatigued. She is able to rest. 05/04/19-No adverse events overnight. Breathing is feeling progressively better. She feels okay at rest but feels better with oxygen when she gets up and walks to the bathroom. No fevers. She tested negative for coronavirus infection. 05/05/2019-patient is comfortable in the bed communicating well. Not in distress. WBC count is 22,000 patient is on IV Solu-Medrol 60 mg every 12 hours. plan to decrease the IV Solu-Medrol to 40 every 12 today. The labs tomorrow. Reason For Visit: ACUTE RESPIRATORY FAILURE WITH HYPOXIA,PNEUMONIA Physical Exam Vital Signs: Temp Pulse Resp BP Pulse Ox 97.6 F 86 16 145/93 H 95 05/05/19 07:23 05/05/19 08:34 05/05/19 08:34 05/05/19 07:23 05/05/19 08:34 Intake & Output 05/04/19 05/05/19 05/06/19 06:59 06:59 06:59 Intake Total 590 1870 Balance 590 1870 Weight 102.4 kg 103.4 kg General appearance: PRESENT: obese Head exam: PRESENT: atraumatic Eye exam: PRESENT: PERRLA Ear exam: PRESENT: normal external ear exam Mouth exam: PRESENT: neck supple Neck exam: ABSENT: carotid bruit, JVD, lymphadenopathy, thyromegaly Respiratory exam: PRESENT: decreased breath sounds Cardiovascular exam: PRESENT: RRR. ABSENT: diastolic murmur, rubs, systolic murmur Pulses: PRESENT: normal dorsalis pedis pul GI/Abdominal exam: PRESENT: normal bowel sounds, soft. ABSENT: distended, guarding, mass, organolmegaly, rebound, tenderness Rectal exam: PRESENT: deferred Extremities exam: PRESENT: full ROM. ABSENT: calf tenderness, clubbing, pedal edema Neurological exam: PRESENT: alert Skin exam: PRESENT: dry, intact, warm. ABSENT: cyanosis, rash Results Laboratory Results: 05/03/19 05:03 05/03/19 05:03 04/26/19 09:20 Troponin I 0.033 NT-Pro-B Natriuret Pep 611 H Impressions: Chest X-Ray 05/02/19 08:00 IMPRESSION: Bilateral pneumonia. Slight improvement. Assessment and Plan - Diagnosis (1) Acute respiratory failure with hypoxia Is this a current diagnosis for this admission?: Yes Plan: Stable on 2 L per nasal cannula. We will try to wean oxygen as tolerated. Breathing much more comfortably today. 05/04/2026-code was negative. Acute respiratory failure with hypoxia resolving. Pulse ox today is 95% on 2 L. Plan is to decrease the dose of IV Solu-Medrol repeat the labs tomorrow. Bilateral pneumonia is improving. (2) Bilateral pneumonia Qualifiers: Aspiration pneumonia type: unspecified Lung location: lower lobe of lung Is this a current diagnosis for this admission?: Yes Plan: Continue antibiotics, along with bronchodilators. Cultures pending. Can probably start to de-escalate steroids tomorrow. 05/05/2019 blood cultures are negative sputum is positive for Beatriz. (3) Obesity (BMI 30-39.9) Is this a current diagnosis for this admission?: No Plan: Strongly encouraged lifestyle modification
[2019-05-05] MEDS: OXYCODONE-ACETAMINOPHEN 5-325 MG TABLET PO PRN (20:42)
[2019-05-06] MEDS: IPRATROPIUM/ALBUTEROL 0.5-2.5 MG/3 ML AMPUL NEB SCH ×2 (02:01→07:41)
[2019-05-06 07:29] LABS: HEMATOCRIT 37.8 % (36.0-47.0); HEMOGLOBIN 12.5 g/dL (12.0-15.5); MEAN CORPUSCULAR HEMOGLOBIN 34.1 pg (27.0-33.4); MEAN CORPUSCULAR HGB CONC 33.1 g/dL (32.0-36.0); MEAN CORPUSCULAR VOLUME 103 fl (80-97); PLATELET COUNT 366 10^3/uL (150-450); RED BLOOD COUNT 3.67 10^6/uL (3.72-5.28); RED CELL DISTRIBUTION WIDTH 12.9 % (11.5-14.0); WHITE BLOOD COUNT 20.9 10^3/uL (4.0-10.5)
[2019-05-06 07:39] LABS: ALKALINE PHOSPHATASE 57 U/L (38-126); ANION GAP 10 (5-19); ASPARTATE AMINO TRANSFERASE 18 U/L (14-36); BILIRUBIN,DIRECT 0.3 mg/dL (0.0-0.4); BILIRUBIN,TOTAL 0.4 mg/dL (0.2-1.3); BLOOD UREA NITROGEN 22 mg/dL (7-20); CALCIUM 9.2 mg/dL (8.4-10.2); CARBON DIOXIDE 27 mmol/L (22-30); CHLORIDE 98 mmol/L (98-107); GLUCOSE 107 mg/dL (75-110); POTASSIUM 4.8 mmol/L (3.6-5.0); TOTAL PROTEIN 5.7 g/dL (6.3-8.2)
[2019-05-06] MEDS: BUDESONIDE NEB 0.5 MG/2 ML AMPUL NEB SCH (07:41)
[2019-05-06 08:15] LABS: ABSOLUTE LYMPHOCYTES# (MANUAL) 2.1 10^3/uL (0.5-4.7); ABSOLUTE MONOCYTES # (MANUAL) 0.8 10^3/uL (0.1-1.4); BASOPHILS % (MANUAL) 0 % (0-2); EOSINOPHILS % (MANUAL) 0 % (0-6); LYMPHOCYTES % (MANUAL) 9 % (13-45); MONOCYTES % (MANUAL) 4 % (3-13); MYELOCYTES % (MANUAL) 2 % (0); SEGMENTED NEUTROPHILS % (MAN) 84 % (42-78); TOTAL CELLS COUNTED 100
[2019-05-06 08:16] LABS: OVALOCYTES SLIGHT; PLATELET COMMENT ADEQUATE; TOXIC GRANULATION SLIGHT; TOXIC VACUOLATION PRESENT
[2019-05-06] MEDS: POTASSIUM CHLORIDE 10 MEQ TABLET.ER PO SCH (09:05)
[2019-05-06] MEDS: DOCUSATE SODIUM 100 MG CAPSULE PO SCH (09:05)
[2019-05-06] MEDS: ENOXAPARIN SODIUM INJ 40 MG/0.4 ML DISP.SYRIN SUBCUT SCH (09:06)
[2019-05-06] MEDS: FUROSEMIDE 20 MG TABLET PO SCH (09:06)
[2019-05-06] MEDS: FAMOTIDINE 20 MG TABLET PO SCH (09:06)
[2019-05-06] MEDS: METHYLPREDNISOLONE INJ 40 MG/1 ML SDV IV SCH (09:12)
[2019-05-06 11:01] VITALS: BP 133/68
--- NOTE | 2019-05-06 11:06 | PDOC DISCHARGE SUMMARY ---
Impression - Admit/DC Date/PCP Admission Date/Primary Care Provider: 04/26/19 11:48 Discharge Date: 05/06/19 - Discharge Diagnosis (1) Acute respiratory failure with hypoxia Is this a current diagnosis for this admission?: Yes (2) Bilateral pneumonia Is this a current diagnosis for this admission?: Yes (3) Obesity (BMI 30-39.9) Is this a current diagnosis for this admission?: No - Assessment Summary: (1) Acute respiratory failure with hypoxia Is this a current diagnosis for this admission?: Yes Plan: Stable on 2 L per nasal cannula. We will try to wean oxygen as tolerated. Breathing much more comfortably today. 05/04/2026-covid was negative. Acute respiratory failure with hypoxia resolving. Pulse ox today is 95% on 2 L. Plan is to decrease the dose of IV Solu-Medrol repeat the labs tomorrow. Bilateral pneumonia is improving. 05/06/19-patient admitted with acute respiratory failure with hypoxia initially she is on BiPAP for several days. Initially this was a high suspicion for coronavirus positive but the test came back negative. Patient is off the antibiotics at this time afebrile. Pulse oxes are stable. She is going home today with the nebulizer treatments. (2) Bilateral pneumonia Qualifiers: Aspiration pneumonia type: unspecified Lung location: lower lobe of lung Is this a current diagnosis for this admission?: Yes Plan: Continue antibiotics, along with bronchodilators. Cultures pending. Can probably start to de-escalate steroids tomorrow. 05/05/2019 blood cultures are negative sputum is positive for Beatriz. 05/06/2019-blood cultures are negative and sputum culture came back positive for Beatriz. Initial radiology investigations indicates left lower lobe pneumonia. Afebrile now. (3) Obesity (BMI 30-39.9) Is this a current diagnosis for this admission?: No Plan: Strongly encouraged lifestyle modification - Additional Information Discharge Diet: Cardiac Discharge Activity: Activity As Tolerated Referrals: [facility] [Outside] (please call office to set up telemed) Prescriptions: Ipratropium/Albuterol Sulfate [Duoneb 3 ml Ampul] 3 ml NEB RTQ6 #120 vial.neb Famotidine [Pepcid 20 mg Tablet] 20 mg PO Q12 30 Days #30 tablet Oxycodone HCl/Acetaminophen [Percocet 5-325 mg Tablet] 1 tab PO Q8HP PRN 5 Days #15 tablet PRN Reason: Home Medications: Famotidine [Pepcid 20 mg Tablet] 20 mg PO Q12 30 Days #30 tablet 05/06/19 Ipratropium/Albuterol Sulfate [Duoneb 3 ml Ampul] 3 ml [facility] RTQ6 #120 vial.[facility] 05/06/19 Oxycodone HCl/Acetaminophen [Percocet 5-325 mg Tablet] 1 tab PO Q8HP PRN 5 Days #15 tablet 05/06/19 History of Present Illiness History of Present Illness: ELLY ELLIS is a 39 year old female 39 year old female past medical untreated psoriasis and tobacco abuse presenting to ED complaining of subjective fever, chills, cough, sore throat, generalized fatigue and muscle ache. Patient is stating that about a week ago she she was having headache and rhinorrhea and thought she was having sinus infection, headache and rhinorrhea resolved but patient started having intermittent productive cough and shortness of breath since Thursday associated with subjective fever, chills, sore throat, generalized fatigue and muscle ache. Denies any chest pain, nausea, vomiting, abdominal pain, diarrhea, constipation or any urinary symptoms. Denies any recent travel or exposure to anybody with similar symptoms. 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 In ED was noted to be hypoxic on room air, with chest x-ray positive for patchy bibasilar and perihilar opacities CBC with neutrophilic leukocytosis and bandemia, and mildly elevated troponins. Influenza type A/B- COVID-19 screening by ER physician was negative however given presentation patient was still considered a possible suspect for COVID-19. Hospital Course Hospital Course: 39 year old female past medical untreated psoriasis and tobacco abuse presenting to ED complaining of subjective fever, chills, cough, sore throat, generalized fatigue and muscle ache. Patient is stating that about a week ago she she was having headache and rhinorrhea and thought she was having sinus infection, headache and rhinorrhea resolved but patient started having intermittent productive cough and shortness of breath since Thursday associated with subjective fever, chills, sore throat, generalized fatigue and muscle ache. Denies any chest pain, nausea, vomiting, abdominal pain, diarrhea, constipation or any urinary symptoms. Denies any recent travel or exposure to anybody with similar symptoms. 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 In ED was noted to be hypoxic on room air, with chest x-ray positive for patchy bibasilar and perihilar opacities CBC with neutrophilic leukocytosis and bandemia, and mildly elevated troponins. Influenza type A/B- COVID-19 screening by ER physician was negative however given presentation patient was still considered a possible suspect for COVID-19. 04/27/2019. No acute events overnight. Patient still complaining of generalized fatigue, sore throat, cough, and he still dependent on BiPAP. Denies any chest pain, nausea, vomiting, diarrhea, constipation or any urinary symptoms. 04/28/19-The patient is still wheezy and she is still on BiPAP this morning. She reports that she is not feeling better. She remains afebrile with intermittent tachycardia. 04/29/19-Patient is sitting on the edge of the bed. She is struggling to put her gown back on. Her oxygen cannula tubing is looped over her ear. She is slow to answer questions. She has a very gravelly voice. 04/30/19-It has been difficult to get the patient off of BiPAP. She still feels very short of breath. She still requires 50% FiO2. She did admit that she is a 2 pack/day smoker as well. 05/01/19-The patient appears much better today. She is having trouble keeping her BiPAP mask in place but is having complete conversations. She is completely alert. Her breathing is more comfortable. She was seen by pulmonology today as well. 05/02/19-The patient is sitting up in a chair. She has been off of BiPAP most of the morning. She still requires oxygen therapy. She states that she is feeling a little better and is pleased to be off of the BiPAP for several hours. 05/03/19- No adverse events overnight. No fevers. Congested cough. Feels fatigued. She is able to rest. 05/04/19-No adverse events overnight. Breathing is feeling progressively better. She feels okay at rest but feels better with oxygen when she gets up and walks to the bathroom. No fevers. She tested negative for coronavirus infection. 05/05/2019-patient is comfortable in the bed communicating well. Not in distress. WBC count is 22,000 patient is on IV Solu-Medrol 60 mg every 12 hours. plan to decrease the IV Solu-Medrol to 40 every 12 today. The labs tomorrow. 05/06/2019-patient is comfortable in the room brushing her teeth. Expressing desire to go home today. Pulse ox is 92% room air. during the hospital stay coronavirus testing came back negative. Physical Exam Vital Signs: Temp Pulse Resp BP Pulse Ox 97.5 F 68 18 133/74 H 95 05/06/19 07:30 05/06/19 07:30 05/06/19 07:30 05/06/19 07:30 05/06/19 07:30 Intake & Output 05/05/19 05/06/19 05/07/19 06:59 06:59 06:59 Intake Total 1870 1430 Balance 1870 1430 Weight 103.4 kg 102.5 kg General appearance: PRESENT: no acute distress, obese Head exam: PRESENT: atraumatic Eye exam: PRESENT: PERRLA Mouth exam: PRESENT: moist, tongue midline Neck exam: ABSENT: carotid bruit, JVD, lymphadenopathy, thyromegaly Respiratory exam: PRESENT: decreased breath sounds Cardiovascular exam: PRESENT: RRR. ABSENT: diastolic murmur, rubs, systolic murmur GI/Abdominal exam: PRESENT: normal bowel sounds, soft. ABSENT: distended, guarding, mass, organolmegaly, rebound, tenderness Rectal exam: PRESENT: deferred Extremities exam: PRESENT: full ROM. ABSENT: calf tenderness, clubbing, pedal edema Neurological exam: PRESENT: alert, awake, oriented to person, oriented to place, oriented to time, oriented to situation, CN II-XII grossly intact. ABSENT: motor sensory deficit Psychiatric exam: PRESENT: appropriate affect, normal mood. ABSENT: homicidal ideation, suicidal ideation Results Laboratory Results: WBC 20.9 10^3/uL (4.0-10.5) H 05/06/19 06:21 RBC 3.67 10^6/uL (3.72-5.28) L 05/06/19 06:21 Hgb 12.5 g/dL (12.0-15.5) 05/06/19 06:21 Hct 37.8 % (36.0-47.0) 05/06/19 06:21 MCV 103 fl (80-97) H 05/06/19 06:21 MCH 34.1 pg (27.0-33.4) H 05/06/19 06:21 MCHC 33.1 g/dL (32.0-36.0) 05/06/19 06:21 RDW 12.9 % (11.5-14.0) 05/06/19 06:21 Plt Count 366 10^3/uL (150-450) 05/06/19 06:21 Lymph % (Auto) Not Reportable 05/06/19 06:21 [place] % (Auto) Not Reportable 05/06/19 06:21 Eos % (Auto) Not Reportable 05/06/19 06:21 Baso % (Auto) Not Reportable 05/06/19 06:21 Absolute Neuts (auto) Not Reportable 05/06/19 06:21 Absolute Lymphs (auto) Not Reportable 05/06/19 06:21 Absolute Monos (auto) Not Reportable 05/06/19 06:21 Absolute Eos (auto) Not Reportable 05/06/19 06:21 Absolute Basos (auto) Not Reportable 05/06/19 06:21 Total Counted 100 05/06/19 06:21 Seg Neutrophils % Not Reportable 05/06/19 06:21 Seg Neuts % (Manual) 84 % (42-78) H 05/06/19 06:21 Band Neutrophils % 1 % (3-5) L 04/30/19 05:45 Lymphocytes % (Manual) 9 % (13-45) L 05/06/19 06:21 Atypical Lymphs % 1 % (0) 05/06/19 06:21 Monocytes % (Manual) 4 % (3-13) 05/06/19 06:21 Eosinophils % (Manual) 0 % (0-6) 05/06/19 06:21 Basophils % (Manual) 0 % (0-2) 05/06/19 06:21 Metamyelocytes % 1 % (0-1) 05/03/19 05:03 Myelocytes % 2 % (0) H 05/06/19 06:21 Abs Neuts (Manual) 18.0 10^3/uL (1.7-8.2) H 05/06/19 06:21 Abs Lymphs (Manual) 2.1 10^3/uL (0.5-4.7) 05/06/19 06:21 Abs Monocytes (Manual) 0.8 10^3/uL (0.1-1.4) 05/06/19 06:21 Absolute Eos (Manual) 0.0 10^3/uL (0.0-0.6) 05/06/19 06:21 Abs Basophils (Manual) 0.0 10^3/uL (0.0-0.2) 05/06/19 06:21 Toxic Granulation SLIGHT 05/06/19 06:21 Toxic Vacuolation PRESENT 05/06/19 06:21 Platelet Comment ADEQUATE 05/06/19 06:21 Polychromasia SLIGHT 05/03/19 05:03 Macrocytosis 1+ 05/06/19 06:21 Tear Drop Cells SLIGHT 05/03/19 05:03 Ovalocytes SLIGHT 05/06/19 06:21 Stomatocytes SLIGHT 05/02/19 05:34 Ascencion Cells SLIGHT 05/02/19 05:34 PT 15.0 SEC (11.4-15.4) 04/26/19 09:20 INR 1.17 04/26/19 09:20 Carbonic Acid 1.63 mmol/L (1.05-1.35) H 05/02/19 14:46 HCO3/H2CO3 Ratio 20:1 05/02/19 14:46 ABG pH 7.41 (7.35-7.45) 05/02/19 14:46 ABG pCO2 54.1 mmHg (35-45) H 05/02/19 14:46 ABG pO2 53.3 mmHg (80-100) L 05/02/19 14:46 ABG HCO3 33.8 mmol/L (20-24) H 05/02/19 14:46 ABG Total CO2 35.5 mmol/L (21-25) H 05/02/19 14:46 ABG O2 Saturation 87.5 % (94-98) L 05/02/19 14:46 ABG Base Excess 7.4 mmol/L 05/02/19 14:46 VBG pH 7.29 (7.30-7.42) L 04/26/19 09:20 VBG pCO2 69.6 mmHg (35-63) H* 04/26/19 09:20 VBG HCO3 32.9 mmol/L (20-32) H 04/26/19 09:20 VBG Base Excess 3.8 mmol/L 04/26/19 09:20 FiO2 36% 05/02/19 14:46 Sodium 135.2 mmol/L (137-145) L 05/06/19 06:21 Potassium 4.8 mmol/L (3.6-5.0) 05/06/19 06:21 Chloride 98 mmol/L (98-107) 05/06/19 06:21 Carbon Dioxide 27 mmol/L (22-30) 05/06/19 06:21 Anion Gap 10 (5-19) 05/06/19 06:21 BUN 22 mg/dL (7-20) H 05/06/19 06:21 Creatinine 0.59 mg/dL (0.52-1.25) 05/06/19 06:21 Est GFR ( Amer) > 60 (>60) 05/06/19 06:21 Est GFR (MDRD) Non-Af > 60 (>60) 05/06/19 06:21 Glucose 107 mg/dL (75-110) 05/06/19 06:21 Hemoglobin A1c % 4.9 % (4.7-6.0) 04/27/19 06:02 Lactic Acid 1.4 mmol/L (0.7-2.1) 04/26/19 15:45 Calcium 9.2 mg/dL (8.4-10.2) 05/06/19 06:21 Magnesium 2.5 mg/dL (1.6-2.3) H 05/06/19 06:21 Total Bilirubin 0.4 mg/dL (0.2-1.3) 05/06/19 06:21 Direct Bilirubin 0.3 mg/dL (0.0-0.4) 05/06/19 06:21 Neonat Total Bilirubin Not Reportable 05/06/19 06:21 Neonat Direct Bilirubin Not Reportable 05/06/19 06:21 Neonat Indirect Bili Not Reportable 05/06/19 06:21 AST 18 U/L (14-36) 05/06/19 06:21 ALT 25 U/L (<35) 05/06/19 06:21 Alkaline Phosphatase 57 U/L (38-126) 05/06/19 06:21 Lactate Dehydrogenase 214 U/L (120-246) 05/01/19 04:52 Troponin I 0.033 ng/mL 04/26/19 09:20 NT-Pro-B Natriuret Pep 611 pg/mL (<125) H 04/26/19 09:20 Total Protein 5.7 g/dL (6.3-8.2) L 05/06/19 06:21 Albumin 3.0 g/dL (3.5-5.0) L 05/06/19 06:21 Triglycerides 121 mg/dL (<150) 04/27/19 06:02 Cholesterol 85.05 mg/dL (0-200) 04/27/19 06:02 LDL Cholesterol Direct 44 mg/dL (<100) 04/27/19 06:02 VLDL Cholesterol 24.0 mg/dL (10-31) 04/27/19 06:02 HDL Cholesterol 18 mg/dL (>40) L 04/27/19 06:02 TSH 0.83 uIU/mL (0.47-4.68) 04/27/19 06:02 Free T4 1.20 ng/dL (0.78-2.19) 04/27/19 06:02 Free T3 pg/mL 3.07 pg/mL (2.77-5.27) 04/27/19 06:02 Cortisol AM Sample 28.10 ug/dL (4.46-22.7) H 04/30/19 05:45 COVID-19 Source THROAT 04/26/19 11:56 COVID-19 (WILBERT) Not Detected (Not Detect) 04/26/19 11:56 Influenza A (Rapid) NEGATIVE (NEGATIVE) 04/26/19 09:20 Influenza B (Rapid) NEGATIVE (NEGATIVE) 04/26/19 09:20 Slides for Path Review PATHOLOGIST REVIEWED 05/02/19 05:34 04/26/19 09:20 Troponin I 0.033 NT-Pro-B Natriuret Pep 611 H Impressions: Chest X-Ray 04/26/19 09:10 IMPRESSION: Patchy bibasilar and perihilar opacities may represent mild pulmonary edema, infectious or inflammatory process. Chest X-Ray 04/29/19 00:00 IMPRESSION: Patchy perihilar and basilar predominant opacities with small pleural effusions have slightly worsened since previous examination. Findings may represent mild pulmonary edema, infectious or inflammatory process. Differential includes pneumonia, influenza, or other viral etiologies. Chest X-Ray 05/02/19 08:00 IMPRESSION: Bilateral pneumonia. Slight improvement. Plan Plan of Treatment: And is going home today and she was advised to follow-up with community care clinic in less than a week. Prescription for nebulizer and , pain medication was given. Time Spent: Greater than 30 Minutes Stroke Is this a Stroke Patient?: No Acute Heart Failure - Is this a Heart Failure Patient?: No
== END 2019-05-06 12:36 | disposition home or self-care (01) | DRG 193 ==
LOC: ER 08:50 → EH 11:48 → 5 13:39 → 4S 05-04 10:17
PROVIDERS: ADMIT Internal Medicine; ATTEND Internal Medicine
PROC: 5A09557 Assistance with Respiratory Ventilation, Greater than 96 Consecutive Hours, Continuous Positive Airway Pressure (ICD-10-PCS; principal; 2019-04-26)
DX: J13 Pneumonia due to Streptococcus pneumoniae (principal); J96.01 Acute respiratory failure with hypoxia; J96.02 Acute respiratory failure with hypercapnia; E66.01 Morbid (severe) obesity due to excess calories; F41.1 Generalized anxiety disorder; Z68.38 Body mass index [BMI] 38.0-38.9, adult; L40.9 Psoriasis, unspecified; E87.6 Hypokalemia; I10 Essential (primary) hypertension; E83.41 Hypermagnesemia; F17.210 Nicotine dependence, cigarettes, uncomplicated; Z03.818 Encounter for observation for suspected exposure to other biological agents ruled out
CPT/HCPCS: 36415; 36600; 71045; 80048; 80053; 80061; 82533; 82803; 83036; 83605; 83615; 83735; 83880; 84439; 84443; 84481; 84484; 85025; 85610; 87040; 87070; 87205; 87635; 87804; 93005; 93010; 94640; 94660; 96365; 99291; C1758; J0456; J0692; J0696; J1650; J1940; J2060; J2920; J2930; J3480; J3490; J7030; J7060; J7120; J7620; P9047